=== PATIENT | female | born 1955 | race Caucasian/White ===

== ENCOUNTER → 2017-09-13 09:51 | Outpatient (CLI) | payer BC, SELFPAY ==
--- NOTE | 2017-09-13 09:54 | BI_ITS ---
MAMMOGRAPHY - BILATERAL SCREENING REASON FOR EXAM: Female, 62 years old. Routine annual screening examination. PERTINENT HISTORY: Aunt with breast cancer. TECHNIQUE: Digital bilateral breast yovana (3D mammographic acquisition) in the CC and MLO projections. 2-D mediolateral oblique (MLO) and craniocaudad (CC) views of both breasts were obtained. CAD: Full Field Digital Mammography with Computer Added Detection was performed. COMPARISON: Comparison is made with prior study dated July 21, 2016 and June 14, 2015. FINDINGS: Breast Composition: There are scattered areas of fibroglandular density. There are no dominant masses or suspicious calcifications. Stable benign-appearing bilateral axillary lymph nodes. No other significant abnormalities are identified. There has been no significant change since the prior study. BI/SCREENING MAMM (CAD), BILAT IMPRESSION: Stable bilateral screening mammogram. Yearly follow-up mammogram recommended. (A) ASSESSMENT CATEGORY: BIRADS Category 2: Benign. A letter regarding these results will be sent to the patient by the facility within 30 days. Approximately 10% of breast cancers are not detected by mammography. A normal mammogram should not delay biopsy of a clinically suspicious abnormality. [id number] Electronically Signed: Niko Du MD at 11:15 EDT Tel [phone], Service support ,
== END ==
PROVIDERS: Family Provider Nurse Practitioner Primary Care; PCP Nurse Practitioner Primary Care; Visit Provider Nurse Practitioner Primary Care
DX: Z12.31 Encounter for screening mammogram for malignant neoplasm of breast (principal)
CPT/HCPCS: 77063; 77067

== ENCOUNTER 2017-10-06 21:18 | Emergency (ER) | payer BC, SELFPAY ==
[2017-10-06 21:20] VITALS: BP 146/106; PULSE 89; RESP 15; TEMP 35.3; O2SAT 96; BMI 25.7
--- NOTE | 2017-10-06 22:02 | ED.VIS.GEN ---
History of Present Illness Chief Complaint: Eye Problem Informant: Patient Onset: Today, Hours - 2 Context: Sudden Onset Quality: pain, redness, FB sensation Location: right eye Current Severity: Moderate Maximum Severity: Moderate Narrative: Went to take out soft contacts for the night, and was unable to get her right one out. She feels like it is stuck. Her vision was normal before trying to take it out so she knows it was in her eye. She often suffers from dry eye which sometimes makes it difficult to get her contacts out. Past Medical History - Allergies and Home Meds Allergies/Adverse Reactions: Allergies MUSCLE RELAXER Allergy (Uncoded 10/06/17 21:23) Other Primary Care Physician: Coar Hogan NP-C [Primary Care Provider] - Past Medical History: None Smoking Status: Never smoker Review of Systems Eyes: Reports: - - Right eye pain, redness, foreign body sensation. Denies: Visual changes - bilaterally, Diplopia Physical Exam Vital Signs/Narrative: Vital Signs Temp Pulse Resp BP Pulse Ox 10/06/17 21:20 95.5 F L 89 15 146/106 H 96 Inital Vital Signs reviewed: Yes General: Well nourished, Well developed Head: Normocephalic, Atraumatic Eyes: Perrl, EOMI, - - OD conjunctive a injected diffusely. Upper eyelid everted without hidden foreign body, but the soft lens is found hiding very laterally beneath her lower eyelid. Neurological: Alert, Oriented x3, Cranial nerves II-XII grossly intact, Normal Strength, Normal Sensation Psychological: Normal affect Diagnostic/Tx/Re-eval - Medical Decision Making Patient is having a little discomfort, and foreign body sensation. Her eye was dyed with floor seen and underwent slit-lamp exam. Anterior chamber is deep and quiet, there is a very small possible abrasion in the 1:00 peripheral area, along with diffuse upper corneal punctate dye uptake. If she had been having symptoms prior to removing her contact I would think she could have some keratitis. My recommendation is to stay in her glasses for a couple days and to resume wearing her contacts if and when the redness and discomfort resolves on its own, otherwise following up with ophthalmology. Procedures Procedure(s): Foreign body removal right eye -- soft contact lens gently pinched using 2 cotton swabs and removed without difficulty. ED Disposition - Plan for ED Patient: Disposition: Home or Assisted Living Chief Complaint: Eye Problem Diagnosis: Foreign body of right eye, Corneal abrasion of right eye due to contact lens Instructions: ED Eye Injury Corneal Abrasion Referrals: Cora Hogan NP-C [Primary Care Provider] - 3-5 Days if not improving (Or your crm developer/property assessment monitor)
== END 2017-10-06 22:39 | disposition home or self-care (01) ==
PROVIDERS: Emergency Provider Emergency Medicine; Family Provider Nurse Practitioner Primary Care; PCP Nurse Practitioner Primary Care
DX: T15.91XA Foreign body on external eye, part unspecified, right eye, initial encounter (principal); H18.821 Corneal disorder due to contact lens, right eye
CPT/HCPCS: 99282

== ENCOUNTER 2017-10-17 19:20 | Emergency (ER) | payer BC, SELFPAY ==
[2017-10-17 19:20] VITALS: BP 156/124; PULSE 96; RESP 18; TEMP 37.2; O2SAT 98; BMI 25.4
--- NOTE | 2017-10-17 20:01 | ED.DCSUM_ITS ---
- ER Visit Summary Date of Service: 10/17/17 Chief Complaint: Contact stuck in right eye History of Present Illness: The patient is a 62 F who states her eyes have been dry lately. She has had more difficulty getting her right contact removed. She feels that her right contact is folded on the lateral portion of her eye and she cannot get it out. Physical Examination: Vital signs unremarkable. Eye examination reveals right eye to be injected. Pupils are equal and reactive. On initial examination I do not see obvious foreign body. Test Results: [] Emergency Department Course and Treatment: Saline was applied to the right eye. I am still unable to visualize her contact. Fluorescein was applied and this did highlight the contact and therefore I was able to visualize it and remove it. Eyes irrigated and contact is cleansed. Treatment Plan: [] Disposition: Discharge Impression: Foreign body right eye, removed This note was generated with [employer] dictation software. It may contain incorrect words, spelling, and punctuation that were not noted in review of the chart prior to signing ED Disposition - Plan for ED Patient: Disposition: Home or Assisted Living Chief Complaint: Eye Problem Instructions: ED Eye Particle Conjunctiva FB Rslv Referrals: Cora Hogan, SHEET ROCK APPLIER-C [Primary Care Provider] -
--- NOTE | 2017-10-17 20:01 | ED.DEP ---
ED Disposition - Plan for ED Patient: Disposition: Home or Assisted Living Chief Complaint: Eye Problem Instructions: ED Eye Particle Conjunctiva FB Rslv Referrals: Cora Hogan, BRAND MARKETING SPECIALIST-C [Primary Care Provider] -
[2017-10-17] MEDS: Tetracaine 0.5% Ophthalmic Bottle 1 DRP RIGHT EYE (20:03)
[2017-10-17] MEDS: Fluorescein 1 MG STRIP 1 STRIP RIGHT EYE (20:03)
[2017-10-17 20:08] VITALS: BP 155/86; PULSE 75; RESP 15; O2SAT 98
== END 2017-10-17 20:12 | disposition home or self-care (01) ==
PROVIDERS: Emergency Provider Emergency Medicine; Family Provider Nurse Practitioner Primary Care; PCP Nurse Practitioner Primary Care
DX: T15.91XA Foreign body on external eye, part unspecified, right eye, initial encounter (principal); M48.00 Spinal stenosis, site unspecified; F41.9 Anxiety disorder, unspecified; Z79.899 Other long term (current) drug therapy
CPT/HCPCS: 99282

== ENCOUNTER → 2018-09-28 | Outpatient (CLI) | payer BC, SELFPAY ==
--- NOTE | 2018-09-28 14:37 | BI_ITS ---
MAMMOGRAPHY - BILATERAL SCREENING 3-D TOMOSYNTHESIS REASON FOR EXAM: Female, 63 years old. Bilateral Screening 3-D tomosynthesis PERTINENT HISTORY: Aunt with breast cancer.. TECHNIQUE: 2-D mammograms and 3-D Tomosynthesis of the breast (s) were performed. CAD was performed. COMPARISON: 09/13/2017 FINDINGS: The breast composition is composed of scattered fibroglandular density. Scattered benign calcifications are seen. No dense spiculated masses or suspicious microcalcifications are identified. No architectural distortion is identified. There is no skin thickening or retraction. There has been no significant change since the prior study. BI/SCREEN MAMM (CAD) W/GLORIA BILAT IMPRESSION: No mammographic signs of malignancy. Routine yearly mammograms recommended. ASSESSMENT CATEGORY: BIRADS Category 1: Negative. A letter regarding these results will be sent to the patient by the facility within 30 days. FOLLOW UP RECOMMENDATION: Yearly follow up mammogram recommended. (A) Approximately 10% of breast cancers are not detected by mammography. A normal mammogram should not delay biopsy of a clinically suspicious abnormality. Electronically Signed: Faisal Anderson MD at 15:31 EDT , Service support ,
== END | disposition home or self-care (01) ==
LOC: OPBI 14:35
PROVIDERS: Family Provider Nurse Practitioner Primary Care; PCP Nurse Practitioner Primary Care; Referring Provider Nurse Practitioner Primary Care; Visit Provider Nurse Practitioner Primary Care
DX: Z12.31 Encounter for screening mammogram for malignant neoplasm of breast (principal)
CPT/HCPCS: 77063; 77067

== ENCOUNTER → 2019-08-17 12:37 | Outpatient (CLI) | payer BC, SELFPAY ==
--- NOTE | 2019-08-17 12:42 | CT_ITS ---
STUDY: CT SCAN LOWER EXTREMITY LEFT REASON FOR EXAM: Female, 63 years old. MIKE LEFT KNEE RADIATION DOSAGE (If Supplied By Facility): CTDIvol = ( 20.10 ) mGy, DLP = ( 1195.64 ) mGycm. Individualized dose optimization techniques were used for this CT.? TECHNIQUE: Multiple axial tomographic images of the left hip joint, knee joint and ankle joint were obtained. Coronal and sagittal reconstruction was obtained as well. COMPARISON: None. FINDINGS: The left hip joint is unremarkable. No significant abnormality is seen. Incidental note is made of a calcified fibroid. Marked degree of joint space narrowing in the medial compartment of knee joint with subchondral cysts in the distal femur and proximal medial tibial plateau with degenerative spur formation. Large joint effusion. Degenerative spurring is also seen along the anterior medial aspect of the distal medial femoral condyle as well as the posterior femoral condyle. The ankle joint is unremarkable. CT/Extremity Lower without Contra IMPRESSION: Severe joint space narrowing and osteoarthritis of the medial compartment of the joint with degenerative spur formation. Large effusion. Electronically Signed: Niko Du, at 13:36 EDT , Service support ,
--- NOTE | 2019-08-17 13:48 | EKG12_ITS ---
Test Reason : PRE OP Blood Pressure : / mmHG Vent. Rate : 077 BPM Atrial Rate : 077 BPM P-R Int : 164 ms QRS Dur : 078 ms QT Int : 394 ms P-R-T Axes : 048 022 013 degrees QTc Int : 445 ms Normal sinus rhythm Normal ECG Confirmed by MIGUEL ÁNGEL IVEY, MADIHA ([id number]), website/blog editor SERGEY DELACRUZ ([id number]) on 08/22/2019 11:32:38 AM Referred By: Allen Porras Confirmed By:LALO DEL ROSARIO MD
[2019-08-17 14:47] LABS: Absolute Lymphocyte Count 1.55 X10^3/uL (0.83-4.51); Absolute Neutrophil Count 3.8 X10^3/uL (2.0-7.7); Basophil# 0.05 X10^3/uL; Basophil% 0.8 % (0-1); Eosinophil# 0.39 X10^3/uL; Eosinophils% 6.2 % (0-5); Hemoglobin 12.9 g/dL (12.0-15.0); Lymphocyte # 1.55 X10^3/ul (4.0); Lymphocyte % 24.7 % (19-41); Mean Corp Hgb Conc 32.3 g/dL (32-36); Mean Corpuscular Hgb 29.5 pg (27.0-32.0); Mean Corpuscular Volume 91.3 fL (81-99); Mean Platelet Vol. 10.6 fl (6.2-12.0); NRBC Flagged by Analyzer 0 % (0-5); Neutrophil # 3.77 X10^3/uL (2.7-7.7); Platelet Count 276 K/mm3 (150-450); RBC Distribution Width CV 12.4 % (11.6-14.6); RBC Distribution Width SD 41.2 fl (35.1-43.9); Red Blood Count 4.38 M/mm3 (4.2-5.4); White Blood Count 6.3 K/mm3 (4.4-11.0)
[2019-08-17 15:07] LABS: Anion Gap 9 (5-15); BUN 22 mg/dL (7-18); BUN/Creat Ratio 20.8 RATIO (10-20); Calcium,Total 8.8 mg/dL (8.5-10.1); Chloride 106 mmol/L (98-107); Creatinine, Serum 1.06 mg/dL (0.55-1.02); EST Glomerular Filtration Rate 55 mL/min (>60); Est Glom Filt Rate - Afr Amer 67 mL/min (>60); Glucose 96 mg/dL (74-106); Potassium 3.8 mmol/L (3.5-5.1); Sodium Level 141 mmol/L (136-145)
== END ==
PROVIDERS: PCP Nurse Practitioner Primary Care; Referring Provider Orthopaedic Surgery; Visit Provider Orthopaedic Surgery
DX: Z01.810 Encounter for preprocedural cardiovascular examination (principal); M21.162 Varus deformity, not elsewhere classified, left knee
CPT/HCPCS: 36415; 73700; 80048; 85025; 93005

== ENCOUNTER 2019-09-04 10:04 | Observation (INO) | payer BC, SELFPAY ==
[2019-09-04] VITALS (14 sets, daily range): BP systolic 110–173; BP diastolic 52–89; PULSE 66–103; RESP 16–18; TEMP 36.2–37.3; O2SAT 95–100; BMI 26.3
[2019-09-04 09:00] LABS: Bedside Glucose 98 mg/dL (70-110)
[2019-09-04] MEDS: Lactated Ringers 1,000 ML 100 ML IV ×2 (09:08→12:41)
[2019-09-04] MEDS: Acetaminophen 500 MG Tablet 1000 MG PO ×3 (09:11→22:08)
[2019-09-04] MEDS: Gabapentin 600 MG Tablet PO (09:11)
[2019-09-04] MEDS: Cefazolin 2 GM in 0.9% Normal Saline 100 ML IV (09:46)
--- NOTE | 2019-09-04 10:00 | KNEE_PTH ---
PATIENT: MNADA ARBOLEDA LOC: MS3 U#:[id number] AGE/SX: 63/F ROOM: MS312 RE09/04/[address]: Dr. Allen Porras DO : 1955 BED: 1 DIS: 09/05/2019 SPEC #: [id number] RECD: 09/04/19 15:17 STATUS: ENMA RETootie #: [id number] CHERRY: 09/04/19 10:[address]: Allen Porras DEPT: SURGICAL PATHOLOGY RECD BY: Marquez Blue ENTERED: 09/05/19 09:44 SP TYPE: TOTAL KNEE OTHR DR: Cora Hogan, INSURANCE SALES AGENT-Gregory Tissues: Knee, NOS Procedures: Decalcification bone/plaque Surgery Specimen Level IV HEADER OPERATION: ERAS, total knee arthroplasty PRE-OP DIAGNOSIS: Left knee osteoarthritis TISSUE SUBMITTED: Left knee bone and soft tissue MICROSCOPIC DIAGNOSIS Bone and soft tissue, left knee, total knee replacement: Pieces of bone with degenerative osteoarthritic changes. Fibroconnective tissue and reactive synovial tissue. ESDRAS:diane 09/11/19 MICROSCOPIC DESCRIPTION Slides are reviewed. GROSS DESCRIPTION Received is one container designated bone and soft tissue left knee. The specimen consists of multiple fragments of jules-yellow bone measuring in aggregate 14 x 10 x 1.5 cm. Also in the specimen container are multiple fragments of yellow-white soft tissue measuring in aggregate 2 x 2 x 0.5 cm. A number of bony fragments contain articular surfaces consistent with tibial plateau and femoral condyle and displaying prominent osteophyte formation, eburnation, and bone erosion. Manager Public sections are submitted in two cassettes as follows: 1 - soft tissue, 2 - bone after decalcification. / AM:diane 09/05/19 TC:5 [facility]: [id number], [id number]
--- NOTE | 2019-09-04 12:18 | RAD_ITS ---
STUDY: X-RAY - LEFT KNEE REASON FOR EXAM: Female, 63 years old. Post op left knee TECHNIQUE: AP and lateral view(s) of the knee. COMPARISON: Comparison is made with prior examination October 19, 2016. FINDINGS: Normal visualized distal femur. Normal visualized proximal tibia and fibula. Normal proximal tibiofibular articulation. The patient is status post left knee replacement. There is good alignment. Postoperative soft tissue changes. RAD/Knee 1 or 2 Views IMPRESSION: Status post total knee replacement. There is good alignment. Postoperative soft tissue changes. Electronically Signed: Niko Du, at 12:35 EDT , Service support ,
[2019-09-04] MEDS: Lactated Ringers 1,000 ML 999 ML IV (12:31)
[2019-09-04 12:58] LABS: Hematocrit 37.3 % (37-47); Hemoglobin 11.9 g/dL (12.0-15.0); Mean Corp Hgb Conc 31.9 g/dL (32-36); Mean Corpuscular Hgb 29.6 pg (27.0-32.0); Mean Corpuscular Volume 92.8 fL (81-99); Platelet Count 246 K/mm3 (150-450); RBC Distribution Width CV 12.3 % (11.6-14.6); RBC Distribution Width SD 41.6 fl (35.1-43.9); Red Blood Count 4.02 M/mm3 (4.2-5.4); White Blood Count 5.2 K/mm3 (4.4-11.0)
--- NOTE | 2019-09-04 13:12 | PCM.OPRPT ---
Report of Operation Date of Procedure: 09/04/19 Pre-Operative Diagnosis: OA left knee Post-Operative Diagnosis: same Surgery/Procedure Performed:: Left TKR flatlock sewing machine operator: Familia Saravia Type of Anesthesia:: Spinal Anesthesiologist: Pal Crum - Admit VTE Documentation VTE Present on Admission: No VTE Mechan Device Prophylaxis: SCD's, Thigh High THA Hose VTE Pharm Prophylaxis ordered?: Yes
[2019-09-04 13:15] LABS: Anion Gap 5 (5-15); BUN 15 mg/dL (7-18); BUN/Creat Ratio 17.6 RATIO (10-20); Calcium,Total 8.7 mg/dL (8.5-10.1); Chloride 111 mmol/L (98-107); Creatinine, Serum 0.85 mg/dL (0.55-1.02); EST Glomerular Filtration Rate 71 mL/min (>60); Est Glom Filt Rate - Afr Amer 86 mL/min (>60); Glucose 132 mg/dL (74-106); Potassium 3.7 mmol/L (3.5-5.1); Sodium Level 143 mmol/L (136-145)
[2019-09-04] MEDS: oxyCODONE 5 MG Tablet PO (14:49)
[2019-09-04] MEDS: Lactated Ringers 1,000 ML 125 ML IV (14:50)
[2019-09-04] MEDS: Cefazolin 1 GM/50 ML BAG IV (18:23)
[2019-09-04] MEDS: 0.9% Saline Lock 10 ML Syringe IV (21:04)
[2019-09-04] MEDS: Aspirin 81 MG TAB.CHEW PO (22:08)
[2019-09-04] MEDS: Gabapentin 100 MG Capsule PO (22:08)
[2019-09-05] MEDS: Cefazolin 1 GM/50 ML BAG IV (01:51)
[2019-09-05] MEDS: 0.9% Saline Lock 10 ML Syringe IV (01:51)
[2019-09-05 02:04] VITALS: BP 134/59; PULSE 74; RESP 16; TEMP 36.6; O2SAT 97
[2019-09-05 02:06] VITALS: BMI 26.3
[2019-09-05] MEDS: Acetaminophen 500 MG Tablet 1000 MG PO ×2 (05:41→14:07)
[2019-09-05] MEDS: oxyCODONE 5 MG Tablet PO ×2 (05:41→14:07)
[2019-09-05 05:48] VITALS: BP 133/63; PULSE 78; RESP 18; TEMP 36.7; O2SAT 97
[2019-09-05 05:50] VITALS: BMI 26.3
[2019-09-05 07:10] LABS: Hematocrit 37.8 % (37-47); Hemoglobin 12.1 g/dL (12.0-15.0); Mean Corpuscular Volume 93.8 fL (81-99); Mean Platelet Vol. 10.8 fl (6.2-12.0); Platelet Count 230 K/mm3 (150-450); RBC Distribution Width CV 12.2 % (11.6-14.6); Red Blood Count 4.03 M/mm3 (4.2-5.4); White Blood Count 5.5 K/mm3 (4.4-11.0)
[2019-09-05 07:30] LABS: Anion Gap 7 (5-15); BUN 15 mg/dL (7-18); BUN/Creat Ratio 18.3 RATIO (10-20); Calcium,Total 8.4 mg/dL (8.5-10.1); Chloride 112 mmol/L (98-107); Creatinine, Serum 0.82 mg/dL (0.55-1.02); EST Glomerular Filtration Rate 74 mL/min (>60); Est Glom Filt Rate - Afr Amer 90 mL/min (>60); Estimated Creatinine Clearance 64.89 ml/min; Glucose 127 mg/dL (74-106); Potassium 4.4 mmol/L (3.5-5.1); Sodium Level 143 mmol/L (136-145)
--- NOTE | 2019-09-05 07:43 | PCM.PN.ORT ---
Subjective: Pt sitting at bedside eating breakfast. pain well terry. no complaints, ready for discharge home. Objective: dressing c/d/i, neg sx/sx. vss wnl, a-feb, nv intact - Physical Exam Vitals/I&O's: Vital Signs Temp Pulse Resp BP Pulse Ox 98.1 F 78 18 133/63 H 97 09/05/19 05:48 09/05/19 05:48 09/05/19 05:48 09/05/19 05:48 09/05/19 05:48 Oxygen Flow Rate (L/min) 6 Oxygen Delivery Method Room Air Weight: 60.1 kg Body Mass Index (BMI) 26.3 Intake and Output for Last 24 Hours 09/03/19 09/04/19 09/05/19 23:59 23:59 23:59 Intake Total 4717.50 / 4717.50 450 / 450 Output Total 2550 / 2550 650 / 650 Balance 2167.50 / 2167.50 -200 / -200 General: Alert, Oriented x3, Cooperative HEENT: PERRLA Oral: Moist Mucosa Neurological: Cranial nerves II-XII grossly intact Psych/Mental Status: Normal Affect, Alert and oriented to time, place, person, mood and affect Laboratory Results 09/04/19 08:55: POC Glucose 98 09/04/19 12:40: WBC 5.2, RBC 4.02 L, Hgb 11.9 L, Hct 37.3, MCV 92.8, MCH 29.6, MCHC 31.9 L, RDW Std Deviation 41.6, RDW Coeff of Tc 12.3, Plt Count 246, MPV 10.0 09/04/19 12:40: Sodium 143, Potassium 3.7, Chloride 111 H, Carbon Dioxide 27.0, Anion Gap 5, BUN 15, Creatinine 0.85, Estim Creat Clear Calc 62.60, Est GFR (MDRD) Af Amer 86, Est GFR (MDRD) Non-Af 71, BUN/Creatinine Ratio 17.6, Glucose 132 H, Calcium 8.7 09/05/19 05:26: WBC 5.5, RBC 4.03 L, Hgb 12.1, Hct 37.8, MCV 93.8, MCH 30.0, MCHC 32.0, RDW Std Deviation 42.0, RDW Coeff of Tc 12.2, Plt Count 230, MPV 10.8 09/05/19 05:26: Sodium 143, Potassium 4.4, Chloride 112 H, Carbon Dioxide 24.0, Anion Gap 7, BUN 15, Creatinine 0.82, Estim Creat Clear Calc 64.89, Est GFR (MDRD) Af Amer 90, Est GFR (MDRD) Non-Af 74, BUN/Creatinine Ratio 18.3, Glucose 127 H, Calcium 8.4 L Current Medications Acetaminophen (Tylenol) 1,000 mg PO Q8 [facility] Last Admin: 09/05/19 05:41 Dose: 1,000 mg Documented by: Aspirin (Aspirin, Baby) 81 mg PO BID [facility] Last Admin: 09/04/19 22:08 Dose: 81 mg Documented by: Calcium/Vitamin D (Os-Minh 500mg + D) 1 tablet PO DAILY@0800 [facility] Cholecalciferol (Vitamin D (25mcg)) 5,000 unit PO DAILY [facility] Gabapentin (Neurontin) 100 mg PO BID [facility] Last Admin: 09/04/19 22:08 Dose: 100 mg Documented by: Sodium Chloride () 250 mls @ 15 mls/hr IV .[id number] PRN PRN Reason: Saline Flush Sodium Chloride () 250 mls @ 15 mls/hr IV .[id number] PRN PRN Reason: Additional IVPB Infusion Insulin Human Lispro (Humalog Kwikpen ([facility])) 1 - 6 unit SC Q4H PRN PRN; Protocol PRN Reason: BG>/= 180, SEE PROTOCOL Magnesium Oxide (Mag-Ox 400) 400 mg PO DAILY [facility] Multivitamins/Minerals (Multivitamin With Minerals (Bk)) 1 tablet PO DAILY@0800 [facility] Ondansetron HCl (Zofran) 4 mg IV Q8H PRN PRN PRN Reason: NAUSEA Oxycodone HCl (Oxyir) 5 - 10 mg PO Q4H PRN PRN PRN Reason: Pain Score 4-10/10 Last Admin: 09/05/19 05:41 Dose: 10 mg Documented by: Promethazine HCl (Phenergan) 12.5 mg IM Q6H PRN PRN; Protocol PRN Reason: NAUSEA/VOMITING Senna/Docusate Sodium (Senokot-S, Vy-Colace) 2 tablet PO BID [facility] Last Admin: 09/04/19 22:09 Dose: Not Given Documented by: Sodium Chloride () 10 - 40 ml IV UD PRN PRN Reason: SALINE FLUSH Last Admin: 09/05/19 01:51 Dose: 10 ml Documented by: Medical Necessity - Tobacco Use Smoking Status: Never smoker Tobacco Use: Non-smoker Assessment/Plan s/p left tkr Plan: 1. Cont all pain meds as rx 2. Cont therapy 3. ASA 81mg 1po q12 hr x30 days for post DVT 4. Encourage incentive spherometry 5. DC home today 6. F/U as scheduled
--- NOTE | 2019-09-05 08:05 | PCM.DC.TKR ---
Discharge Diet: No Restrictions Discharge Activity: May Not Drive, May Shower, Use Walker May shower in (days): 3 Ice area for (Minutes): 20 - each hour while awake. Weight Bearing Status: Weight bearing as tolerated Elevate: Operative Extremity Additional Activity Instructions:: Wear elastic stockings for 2 weeks after your surgery. Call your doctor if your incision/area has: Continuous Slow Oozing, Sudden Increased Bleeding, Increased Pain/ Swelling, Increased Redness, Foul Smelling Discharge Call your doctor if you observe: Fever of 101 or Higher, Coldness, Increased Pain - in extremity, Numbness or Tingling, Change in Color, Calf discomfort, Uncontrolled pain Change Dressing in (Days):: 0 - and daily as needed. Remove Dressing in (days):: 8 Cleanse incision/area with: Soap & Water Allergies/Adverse Reactions: Allergies chlorhexidine Adverse Reaction (Verified 09/04/19 08:52) NEEDS FOLLOW-UP skin became tingling MUSCLE RELAXER Allergy (Uncoded 08/28/19 08:40) Other Medications to take at Discharge Gabapentin [Neurontin] 100 mg PO BID 10/06/17 Biotin 10,000 mcg PO DAILY 08/28/19 Calcium Carbonate/Vitamin D3 [Calcium 600 + Vit D Tablet] 1 ea PO DAILY 08/28/19 Cholecalciferol (Vitamin D3) [Vitamin D3] 5,000 unit PO DAILY 08/28/19 Magnesium Oxide [Magnesium] 500 mg PO DAILY 08/28/19 Meloxicam [Mobic] 15 mg PO DAILY 08/28/19 Multivit-Min/Iron/Folic/Lutein [Centrum Silver Women Tablet] 1 ea PO DAILY 08/28/19 traMADol [Ultram (G)] 50 mg PO QHS 08/28/19 Primary Care Physician: Cora Hogan NP-C [Primary Care Provider] - Test Results: Test results from this visit will be discussed in further detail at your follow-up appointment, if applicable. Please Follow Up With: Familia Saravia PA-C When: as scheduled
[2019-09-05] MEDS: Multivitamins,Ther W-Minerals Tablet 1 TABLET PO (08:19)
[2019-09-05] MEDS: Aspirin 81 MG TAB.CHEW PO (08:20)
[2019-09-05] MEDS: Calcium Carb/Vitamin D 1 TABLET Tablet PO (08:20)
[2019-09-05] MEDS: Magnesium Oxide 400 MG Tablet PO (08:20)
[2019-09-05] MEDS: Gabapentin 100 MG Capsule PO (08:21)
[2019-09-05] MEDS: Senna/Docusate Sodium 1 Tablet 2 TABLET PO (08:21)
[2019-09-05 09:45] VITALS: BP 109/52; PULSE 70; RESP 18; TEMP 36.6; O2SAT 97
[2019-09-05 10:11] VITALS: BMI 26.3
--- NOTE | 2019-09-05 11:10 | CASEMGMT ---
RN JUAN Face to Face with patient for initial transition planning/care coordination assessment. RN CM introduced self and role at [facility]. Patient sitting in chair, alert and oriented. Patient willing to participate in assessment and is able to answer all questions appropriately. Care providers, pharmacy, and demographics verified. Patient wishes to discharge home, and is setup with [facility] for outpatient therapy. Patient states she has no further needs or concerns at this time. CM to follow for discharge planning needs that may arise. PCP: Cora Hogan Specialists: choco Porras Pharmacy: [facility] retail at discharge Insurance: [facility] Prescription Benefit: yes Living Will/HPOA: none LNOK: daugther, boyfriend Living Arrangements: Patient lives alone in 1 story home with 4 steps and railings to enter the home. Patient states daugther or boyfriend will be staying with her. Transportation: daughter or boyfriend DME/HHC: Patient state she has walker, cane, shower chair, and hand held shower. Patient is scheduled for outpatient therapy for at [facility]. Disposition Plan: Patient to discharge home with family support and follow-up plans in place. Saadia JORGE, RN, CM
[2019-09-05 14:11] VITALS: BMI 26.3
--- NOTE | 2019-09-05 14:19 | PHA.DC.MR ---
Pharmacy Service has performed discharge medication reconciliation for this patient. The patient's discharge medication list was reviewed for discrepancies and discrepancies were resolved. Home Medications Gabapentin [Neurontin] 100 mg PO BID 10/06/17 Biotin 10,000 mcg PO DAILY 08/28/19 Calcium Carbonate/Vitamin D3 [Calcium 600 + Vit D Tablet] 1 ea PO DAILY 08/28/19 Cholecalciferol (Vitamin D3) [Vitamin D3] 5,000 unit PO DAILY 08/28/19 Magnesium Oxide [Magnesium] 500 mg PO DAILY 08/28/19 Meloxicam [Mobic] 15 mg PO DAILY 08/28/19 Multivit-Min/Iron/Folic/Lutein [Centrum Silver Women Tablet] 1 ea PO DAILY 08/28/19 traMADol [Ultram (G)] 50 mg PO QHS 08/28/19
== END 2019-09-05 14:41 | disposition home or self-care (01) ==
LOC: SDC 11:43 → MS3 11:43
PROVIDERS: Anesthesiology; Admitting Provider Orthopaedic Surgery; PCP Nurse Practitioner Primary Care; Referring Provider Orthopaedic Surgery; Visit Provider Orthopaedic Surgery
PROC: 0SRD0JZ Replacement of Left Knee Joint with Synthetic Substitute, Open Approach (ICD-10-PCS; CPT 27447; principal; 2019-09-04 09:30)
DX: M17.12 Unilateral primary osteoarthritis, left knee (principal); R03.0 Elevated blood-pressure reading, without diagnosis of hypertension; Z79.899 Other long term (current) drug therapy; M48.00 Spinal stenosis, site unspecified
CPT/HCPCS: 01400; 27447; 64447; S2900; 36415; 73560; 80048; 82962; 85027; 87081; 87635; 88305; 88311; 96361; 96365; 96366; 97110; 97116; 97161; 97166; 97530; 97535; 99218; 99251; C1776; G2023; J7120; A4216; G0378; G0379; G0463; U0003

== ENCOUNTER → 2020-06-04 14:48 | Outpatient (CLI) | payer MEDICARE, OTHER, SELFPAY ==
[2019-09-04 14:11] VITALS: BMI 26.3
--- NOTE | 2020-06-04 14:52 | BI_ITS ---
MAMMOGRAPHY - BILATERAL SCREENING REASON FOR EXAM: Female, 64 years old. Routine annual screening examination. PERTINENT HISTORY: Aunt with breast cancer. TECHNIQUE: Digital bilateral breast gloria (3D mammographic acquisition) in the CC and MLO projections. 2-D mediolateral oblique (MLO) and craniocaudad (CC) views of both breasts were obtained. CAD: Full Field Digital Mammography with Computer Added Detection was performed. COMPARISON: Comparison is made with prior examination dated 09/28/2018 and 09/14/2007. FINDINGS: Breast Composition: There are scattered areas of fibroglandular density. There are no dominant masses or suspicious calcifications. Stable skin lesion in the deep inferior medial aspect of the right breast. Stable dense calcified nodule in the retroareolar region of the right breast. No other significant abnormalities are identified. There has been no significant change since the prior study. BI/SCRN MAMM (CAD)W/GLORIA BILAT IMPRESSION: Stable bilateral screening mammogram. Yearly follow-up mammogram recommended. (A) ASSESSMENT CATEGORY: BIRADS Category 2: Benign. A letter regarding these results will be sent to the patient by the facility within 30 days. Approximately 10% of breast cancers are not detected by mammography. A normal mammogram should not delay biopsy of a clinically suspicious abnormality. [id number] Electronically Signed: Niko Du MD at 15:45 EDT , Service support ,
--- NOTE | 2020-06-04 14:56 | BD_ITS ---
STUDY: DUAL ENERGY X-RAY ABSORPTIOMETRY / DXA REASON FOR EXAM: Female, 64 years old. M810 TECHNIQUE: Bone Mineral Density (BMD) measurements of lumbar spine and bilateral hips were obtained. COMPARISON: None. FINDINGS: Lumbar Spine (L1-L4): g/cm2 (1.338) / T-score (1.1) / Z-score (2.8) Findings are suggestive of normal bone density with a low fracture risk. Left Femur Total: g/cm2 (0.727) / T-score (-2.2) / Z-score (-1.0) Left Femoral Neck: g/cm2 (0.755) / T-score (-2.0) / Z-score (-0.5) Right Femur Total: g/cm2 (0.774) / T-score (-1.9) / Z-score (-0.6) Right Femoral Neck: g/cm2 (0.702) / T-score (-2.4) / Z-score (-0.9) BD/Dexa Bone Density Study IMPRESSION: The patient is considered osteopenic as outlined below according to World Serg Organization (WHO) criteria with a high fracture risk. Reference Information: The T-score is the number of standard deviations above or below the standard which is normal for young adults at their peak bone mineral density. The World Health Organization (WHO) interprets the T-scores as follows: Above -1 Normal bone density Between -1 and -2.5 Osteopenia Equal to / or below -2.5 Osteoporosis As a practical clinical guideline, osteopenia may be graded as follows: Mild -1 through -1.5 Moderate -1.6 through -2.0 Severe -2.1 through -2.4 The Z-score is the number of standard deviations above or below age-matched controls. A Z-score of less than -1.5 would be considered abnormal. References: 1. NIH Osteoporosis and Related Bone Diseases www osteo.org 2. International Society for Clinical Densitometry www iscd.org 3. National Osteoporosis Foundation www nof.org Electronically Signed: Niko Du MD at 12:52 EDT , Service support ,
== END ==
PROVIDERS: PCP Nurse Practitioner Primary Care; Referring Provider Nurse Practitioner Primary Care; Visit Provider Nurse Practitioner Primary Care
DX: Z12.31 Encounter for screening mammogram for malignant neoplasm of breast (principal); Z13.820 Encounter for screening for osteoporosis; M81.0 Age-related osteoporosis without current pathological fracture
CPT/HCPCS: 77063; 77067; 77080

== ENCOUNTER 2021-06-12 09:46 | Outpatient (CLI) | payer MEDICARE, OTHER, SELFPAY ==
--- NOTE | 2021-06-12 09:49 | BI_ITS ---
MAMMOGRAPHY - BILATERAL SCREENING REASON FOR EXAM: Female, 65 years old. Routine annual screening examination. PERTINENT HISTORY: Aunts with breast cancer. TECHNIQUE: Digital bilateral breast gloria (3D mammographic acquisition) in the CC and MLO projections. 2-D mediolateral oblique (MLO) and craniocaudad (CC) views of both breasts were obtained. CAD: Full Field Digital Mammography with Computer Added Detection was performed. COMPARISON: Comparison is made with prior examination dated 06/04/2020 and 09/28/2014. FINDINGS: Breast Composition: There are scattered areas of fibroglandular density. There are no dominant masses or suspicious calcifications. No other significant abnormalities are identified. There has been no significant change since the prior study. BI/SCRN MAMM (CAD)W/GLORIA BILAT IMPRESSION: Stable bilateral screening mammogram. Yearly follow-up mammogram recommended. (A) ASSESSMENT CATEGORY: BIRADS Category 1: Negative. A letter regarding these results will be sent to the patient by the facility within 30 days. Approximately 10% of breast cancers are not detected by mammography. A normal mammogram should not delay biopsy of a clinically suspicious abnormality. [id number] Electronically Signed: Niko Du MD at 11:00 EDT ,
== END 2021-06-12 23:59 | disposition home or self-care (01) ==
LOC: OPBI 09:46
PROVIDERS: PCP Nurse Practitioner Primary Care; Visit Provider Nurse Practitioner Primary Care
DX: Z12.31 Encounter for screening mammogram for malignant neoplasm of breast (principal)
CPT/HCPCS: 77063; 77067

== ENCOUNTER → 2022-08-11 | Outpatient (CLI) | payer MEDICARE, SELFPAY ==
--- NOTE | 2022-08-11 14:32 | BI_ITS ---
MAMMOGRAPHY - BILATERAL SCREENING REASON FOR EXAM: Female, 66 years old. Routine annual screening examination. PERTINENT HISTORY: Aunts with breast cancer. TECHNIQUE: Digital bilateral breast gloria (3D mammographic acquisition) in the CC and MLO projections. 2-D mediolateral oblique (MLO) and craniocaudad (CC) views of both breasts were obtained. CAD: Full Field Digital Mammography with Computer Added Detection was performed. COMPARISON: Comparison is made with prior study dated June 12, 2021 and June 04, 2020. FINDINGS: Breast Composition: There are scattered areas of fibroglandular density. There are no dominant masses or suspicious calcifications. Stable calcified granuloma in the retroareolar region of the right breast. Stable small benign-appearing bilateral axillary lymph nodes. No other significant abnormalities are identified. There has been no significant change since the prior study. BI/SCRN MAMM (CAD)W/GLORIA BILAT IMPRESSION: Stable bilateral screening mammogram. Yearly follow-up mammogram recommended. (A) ASSESSMENT CATEGORY: BIRADS Category 2: Benign. A letter regarding these results will be sent to the patient by the facility within 30 days. Approximately 10% of breast cancers are not detected by mammography. A normal mammogram should not delay biopsy of a clinically suspicious abnormality. [id number] Electronically Signed: Niko Du MD at 15:28 EDT ,
--- NOTE | 2022-08-11 14:38 | BD_ITS ---
STUDY: DUAL ENERGY X-RAY ABSORPTIOMETRY / DXA REASON FOR EXAM: Female, 66 years old. M810 TECHNIQUE: Bone Mineral Density (BMD) measurements of lumbar spine and bilateral hips were obtained. COMPARISON: Comparison is made with prior study dated June 04, 2020. FINDINGS: Lumbar Spine (L1-L4): g/cm2 (1.045) / T-score (0.6) / Z-score (2.5) Findings are suggestive of normal bone density with a low fracture risk. Left Femur Total: g/cm2 (0.626) / T-score (-2.6) / Z-score (-1.2) Left Femoral Neck: g/cm2 (0.582) / T-score (-2.4) / Z-score (-0.7) Right Femur Total: g/cm2 (0.637) / T-score (-2.5) / Z-score (-1.1) Right Femoral Neck: g/cm2 (0.559) / T-score (-2.6) / Z-score (-0.9) The T-Scores on the most recent prior examination were: Lumbar Spine (L1-L4): There has been worsening of bone density since the previous examination. Left Femur Total: which represents a worsening of 6.4%. Right Femur Total: which represents a worsening of 10.9%. BD/Dexa Bone Density Study IMPRESSION: The patient is considered osteoporotic as outlined below according to World Serg Organization (WHO) criteria with a high fracture risk. There has been worsening of bone density since the previous examination. Reference Information: The T-score is the number of standard deviations above or below the standard which is normal for young adults at their peak bone mineral density. The World Health Organization (WHO) interprets the T-scores as follows: Above -1 Normal bone density Between -1 and -2.5 Osteopenia Equal to / or below -2.5 Osteoporosis As a practical clinical guideline, osteopenia may be graded as follows: Mild -1 through -1.5 Moderate -1.6 through -2.0 Severe -2.1 through -2.4 The Z-score is the number of standard deviations above or below age-matched controls. A Z-score of less than -1.5 would be considered abnormal. References: 1. NIH Osteoporosis and Related Bone Diseases www osteo.org 2. International Society for Clinical Densitometry www iscd.org 3. National Osteoporosis Foundation www nof.org Electronically Signed: Niko Du MD at 14:33 EDT ,
== END | disposition home or self-care (01) ==
LOC: OPBI 14:29
PROVIDERS: PCP Nurse Practitioner Primary Care; Referring Provider Nurse Practitioner Primary Care; Visit Provider Nurse Practitioner Primary Care
DX: Z12.31 Encounter for screening mammogram for malignant neoplasm of breast (principal); Z80.3 Family history of malignant neoplasm of breast; M81.0 Age-related osteoporosis without current pathological fracture
CPT/HCPCS: 77063; 77067; 77080

== ENCOUNTER → 2023-04-21 | Outpatient (CLI) | payer MEDICARE, SELFPAY ==
--- NOTE | 2023-04-20 | LES_PTH ---
PATHOLOGY RESULTS PATIENT: MANDA ARBOLEDA LOC: [facility] U#:[id number] AGE/SX: 67/F ROOM: RE04/21/[address]: Dr. John James MD : 1955 BED: DIS: 04/21/2023 SPEC #: [id number] RECD: 04/21/23 10:20 STATUS: ENMA PARVIN #: [id number] CHERRY: 04/20/23 00:[address]: John James DEPT: SURGICAL PATHOLOGY RECD BY: Amirah Chang ENTERED: 04/21/23 10:21 SP TYPE: Lesion OTHR DR: Cora Hogan, HEALTH AND SAFETY SPECIALIST-C Tissues: Skin of eyelid, NOS Procedures: Surgery Specimen Level IV HEADER OPERATION: Left lower lid lesion excision PRE-OP DIAGNOSIS: Increased side of lesion TISSUE SUBMITTED: Left lower lid lesion MICROSCOPIC DIAGNOSIS Left lower lid lesion, biopsy: Seborrheic keratosis with acute inflammation in the superficial keratin layers. Negative for malignancy. ESDRAS:diane 04/22/2023 MICROSCOPIC DESCRIPTION Slides are reviewed. GROSS DESCRIPTION Received in fixative is one container labeled with the patient's name and designated left lower lid lesion. The specimen consists of a piece of jules-white skin measuring 0.4 x 0.3 x 0.2 cm. The specimen is inked and submitted entirely in one cassette. / ESDRAS:diane 04/21/2023 TC:1 CPT: 89699
--- OUTSIDE RECORDS SUMMARY | 2023-04-21 10:35 | XMS RPT_ITS | CCD ---
Author Name Unknown Address [address] [place] [address] Organization [facility] Care Team Providers Care Photonic Laboratory Technician Name Role Phone Milvia Han Unavailable Fast, Staci A Unavailable Susan Hall Unavailable Unavailable Nati New Unavailable Unavailable Janay Perry Unavailable Unavailable Latia Alas Unavailable Unavailable Unavailable Milvia Han Attending Unavailable Fast, Staci A Referring Unavailable Milvia Han Consulting Unavailable Gravius, Svetlana Unavailable Unavailable Vega Hearne, La Unavailable Slarb, Justa Unavailable Unavailable Ciesa, Terri Unavailable Gravius, Svetlana Unavailable Unavailable Milvia Han DO Unavailable Fast DO, Staci A Unavailable Sulma GROUNDS WORKER, Araceli Unavailable Unavailable Gravius CLERICAL ADJUSTER, Svetlana Unavailable Unavailable Slarb GROUNDS WORKER, Justa Unavailable Unavailable Susan Hall Unavailable Unavailable Ciesa INGREDIENT SCALER HELPER, Terri Unavailable Unavailable Unavailable Vega Meaghan, La Unavailable CARISSA CANON-MINH, SURJIT Lozada Primary Care Physicia n CARISSA BANKS, SURJIT Lozada Attending Unava ilable CARISSA PHYSICIAN SCRIBE-INGREDIENT SCALER HELPER, SURJIT Lozada Primary Care Unava ilable CARISSA PHYSICIAN SCRIBE-INGREDIENT SCALER HELPER, SURJIT Lozada Attending Unava ilable CARISSA PHYSICIAN SCRIBE-INGREDIENT SCALER HELPER, SURJIT Lozada Primary Care Unava ilable CARISSA BANKS, SURJIT S Attending Celine FERRER APRN-INGREDIENT SCALER HELPER, SURJIT Lozada Primary Care Celine BANKS, SURJIT Lozada Attending Celine FONTAINEINGREDIENT SCALER HELPER, SURJIT S Primary Care Celine Huffam MINH, Alina Unavailable Yamini Ledezma Unavailable Channing CAMPBELLN, Nadeem Unavailable Unavailable Evette IVEY, Latia Sanz Unavailable Allergies Allergy Classification Reported Allergen(s) Allergy Type Date of Onset Reaction(s) Facility (1 source) allergy to substance [facility] Work Phone: Medications Current Medications Medication Drug Class(es) Dates Sig (Normalized) Sig (Original) atorvastatin 20 mg oral tablet (1 source) HMG-CoA Reductase Inhibitor Start: 05-27-2021 atorvastatin 20 mg oral tablet Dose : 20 mg = 1 tab(s), Oral, qDay, # 30 tab(s), 3 Refill(s), Pharmacy: [facility], 149, cm, 05/27/21 9:20:00 EDT, Height, kg, 05/27/21 9:20:00 EDT, Dosing Weight Start Date: 05/27/21 Status: Ordered biotin 5 mg oral capsule (3 sources) Start: 05-22-2020 biotin 5000 mcg oral caps 0 Refill(s) Start Date: 05/22/20 Status: Ordered Calcium (3 sources) Phosphate Binder, Calcium Start: 07-09-2020 calcium calcium, 0 Refill(s), 65.5 Start Date: 07/09/20 Status: Ordered Cholecalciferol (3 sources) Vitamin D Start: 09-15-2018 Vitamin D (3) 45 units oral capsule 0 Refill(s) Start Date: 09/15/18 Status: Ordered Emergen-C (2 sources) Start: 2021 Emergen-C 0 Refill(s) Start Date: 09/10/21 Status: Ordered Emergen-C oral powder for reconstitution (2 sources) Start: 09-15-2018 Emergen-C oral powder for reconstitution 0 Refill(s) Start Date: 09/15/18 Status: Ordered ezetimibe 10 mg oral tablet (7 sources) Dietary Cholesterol Absorption Inhibitor Start: 06-24-2021 ezetimibe 10 mg oral tablet Dose : 10 mg = 1 tab(s), Oral, qDay, # 90 tab(s), 3 Refill(s), Pharmacy: [id number], 148.5, cm, 07/23/22 9:24:00 EDT, Height, kg, 07/23/22 9:24:00 EDT, Dosing Weight Start Date: 07/23/22 Status: Ordered fexofenadine hydrochloride 180 mg oral tablet (2 sources) Histamine-1 Receptor Antagonist Start: 2021 Ashlyn 24 Hour Allergy oral tablet Dose : 180 mg = 1 tab(s), Oral, qDay, 0 Refill(s) Start Date: 09/10/21 Status: Ordered gabapentin 100 mg oral capsule (20 sources) Anti-epileptic Agent Start: 09-15-2018 gabapentin 100 mg oral capsule Dose : 100 mg = 1 cap(s), Oral, BID, # 60 cap(s), 0 Refill(s) Start Date: 09/15/18 Status: Ordered Completed/Discontinued Medications Medication Drug Class(es) Dates Sig (Normalized) Sig (Original) ALPRAZolam 0.25 mg oral tablet (12 sources) Benzodiazepine End: 09-07-2018 Xanax 0.25 MG Oral Tablet 1 tab prn for 0 days Refills: 0 Ordered: 07-Sep-2018 Gravius CLERICAL ADJUSTER, Svetlana End : 07-Sep-2018 Inactive betamethasone 0.5 mg/ml topical cream (11 sources) Corticosteroid Start: 12-02-2020 End: 10-07-2022 betamethasone dipropionate 0.05 % topical cream 3 mm apply to lesions sparinly bid for 0 days Quantity: 15 {Gram} Refills: 0 Ordered: 07-Oct-2022 Slarb GROUNDS WORKER, Justa Start : 02-Dec-2020 End : 07-Oct-2022 Inactive Problems Active Problems Problem Classification Problem Date Documented Da te Episodic/Chronic Acquired foot deformities (17 sources) Deformity of toe; Translations: [Toe deformity, right] 03-24-2018 Episodic Past or Other Problems Problem Classification Problem Date Documented Date Episodic/Chronic Osteoarthritis (2 sources) Osteoarthritis of left knee joint; Translations: [Osteoarthritis of left knee, unspecified osteoarthritis type] 09-07-2018 Other nutritional; endocrine; and metabolic disorders (8 sources) Body mass index 25-29 - overweight; Translations: [BMI 26.0-26.9,adult] Resolved: 11-20-2019 09-07-2018 Episodic Other skin disorders (2 sources) Abnormality of nail surface; Translations: [Abnormality of nail surface] 09-07-2018 Unclassified (20 sources) multiple skin tags 08-12-2017 Results Test Name Value Interpretation Reference Range Facil ity Vital Signs Date Time Vital Sign Value Performing Clinician Facility 10-26-2022 13:090400 Body height 152.4 cm Justa Marley LPN [facility] Work Phone: 10-26-2022 13:09-0400 Body mass index (BMI) [Ratio] 27.93 kg/m2 Justa Marley LPN [facility]; [facility] Work Phone: 10-26-2022 13:09-0400 Body surface area Derived from formula 1.62 m2 Justa Marley LPN [facility]; [facility] Work Phone: 10-26-2022 13:09-0400 Body temperature 98 [degF] Justa Marley LPN [facility]; [facility] Work Phone: Encounters Encounter Date Encounter Type Care Provider Facility Start: 10-26-2022 End: 10-26-2022 Office outpatient visit 15 minutes Milvia Guille DO Work Phone: [facility] Start: 10-19-2022 End: 10-19-2022 Office outpatient visit 10 minutes Milvia Guille DO Work Phone: [facility] Start: 10-07-2022 Review Milvia Guerreroo n DO Work Phone: [facility] Start: 10-07-2022 End: 10-07-2022 Office outpatient visit 15 minutes Milvia Guille DO Work Phone: [facility] Start: 08-31-2022 End: 09-01-2022 ambulatory SURJIT FERRER PHYSICIAN SCRIBE-INGREDIENT SCALER HELPER Facility:[facility] Start: 08-31-2022 End: 08-31-2022 Patient encounter procedure SURJIT FERRER PHYSICIAN SCRIBE-INGREDIENT SCALER HELPER [facility] Start: 07-29-2022 End: 07-30-2022 ambulatory SURJIT FERRER PHYSICIAN SCRIBE-INGREDIENT SCALER HELPER Facility:[facility] Start: 07-23-2022 End: 07-24-2022 ambulatory SURJIT FERRER PHYSICIAN SCRIBE-INGREDIENT SCALER HELPER Facility:[facility] Start: 2021 End: 09-11-2021 ambulatory SURJIT FERRER PHYSICIAN SCRIBE-INGREDIENT SCALER HELPER Facility:[facility] Start: 2021 End: 2021 Patient encounter procedure SURJIT FERRER PHYSICIAN SCRIBE-INGREDIENT SCALER HELPER [facility] Start: 05-27-2021 End: 05-27-2021 Patient encounter procedure SURJIT FERRER PHYSICIAN SCRIBE-INGREDIENT SCALER HELPER [facility] Start: 12-09-2020 End: 12-09-2020 Annotation/Addendum Milvia Guille DO Work Phone: [facility] Start: 12-02-2020 End: 12-02-2020 Office outpatient visit 15 minutes Milvia Guille DO Work Phone: [facility] Start: 10-24-2020 End: 10-24-2020 Office outpatient visit 10 minutes Milvia Guille DO Work Phone: [facility] Start: 11-20-2019 End: 11-20-2019 Office outpatient visit 15 minutes Milvia Guille DO Work Phone: [facility] Start: 11-20-2019 Review Milvia Fearo n DO Work Phone: [facility] Start: 03-15-2019 End: 03-15-2019 Annotation/Addendum Milvia Guille DO Work Phone: [facility] Start: 03-14-2019 End: 03-14-2019 Office outpatient visit 15 minutes Milvia Guille DO Work Phone: [facility] Start: 09-07-2018 End: 09-07-2018 Office outpatient visit 10 minutes Milvia Abdi [facility] Start: 04-06-2018 End: 04-06-2018 Office outpatient visit 25 minutes Milvia Abdi [facility] Start: 04-06-2018 Review Milvia Obrien [facility] Start: 03-24-2018 Patient encounter procedure Milvia Abdi [facility] Start: 03-24-2018 End: 03-24-2018 Office outpatient visit 15 minutes Milvia Han [facility] Start: 09-14-2017 End: 09-14-2017 Office outpatient visit 15 minutes Milvia Han [facility] Start: 09-02-2017 End: 09-02-2017 Office outpatient visit 15 minutes Milvia Han [facility] Start: 08-12-2017 End: 08-12-2017 Office outpatient visit 15 minutes Milvia Han [facility] Start: 05-07-2017 End: 05-07-2017 Office outpatient visit 10 minutes Milvia Han [facility] Start: 09-21-2016 End: 09-21-2016 Office outpatient visit 15 minutes Milvia Han [facility] Start: 09-18-2016 End: 09-18-2016 Office outpatient visit 15 minutes Milvia Abdi [facility] Start: 11-26-2015 End: 11-26-2015 Office outpatient visit 15 minutes Milvia Han [facility] Start: 11-14-2015 End: 11-14-2015 Office outpatient visit 10 minutes Milvia Abdi [facility] Start: 07-23-2015 End: 07-23-2015 Office outpatient visit 25 minutes Milvia Han [facility] Internal [facility] Start: 07-23-2014 End: 07-23-2014 Office outpatient visit 15 minutes Milvia Han [facility] Start: 09-14-2013 End: 09-14-2013 Patient encounter procedure Milvia Abdi [facility] Start: 07-11-2013 End: 07-11-2013 Patient encounter procedure Milvia Abdi [facility] Start: 07-22-2012 End: 07-24-2012 Patient encounter procedure Milvia Han [facility] Start: 07-19-2012 End: 07-20-2012 Patient encounter procedure Milvia Han [facility] Start: 09-11-2008 End: 09-12-2008 Patient encounter procedure Milvia Han [facility] Start: 07-16-2008 End: 07-16-2008 Patient encounter procedure Milvia Han [facility] Procedures Date Procedure Procedure Detail Performing Clinician Start: 11-20-2003 Excision of buncollins FERRER PHYSICIAN SCRIBE-INGREDIENT SCALER HELPER Replacement of total knee joint Justa Marley GROUNDS WORKER Plan of Treatment Date Care Activity Detail Author Start: 10-26-2022 Procedure Education Eprescribed prescriptions (G8553) [facility]; [facility] Work Phone: Start: 10-26-2022 Provider Instructions for Treatment Follow up with dermatology if the rash does not resolve. [facility]; [facility] Work Phone: Start: 10-19-2022 Procedure Education Eprescribed prescriptions (G8553) [facility]; [facility] Work Phone: Start: 10-07-2022 Procedure Education Eprescribed prescriptions (G8553) [facility]; [facility] Work Phone: Start: 10-07-2022 Provider Instructions for Treatment Follow up as needed [facility] Work Phone: Start: 12-02-2020 Procedure Education Eprescribed prescriptions (G8553) [facility]; [facility] Work Phone: Start: 12-02-2020 Provider Instructions for Treatment Follow up if no improvement or if symptoms worsen [facility]; [facility] Work Phone: Start: 10-24-2020 Procedure Education Eprescribed prescriptions (G8553) [facility]; [facility] Work Phone: Start: 11-20-2019 Procedure Education Eprescribed prescriptions (G8553) [facility] Work Phone: Start: 11-20-2019 Provider Instructions for Treatment [facility] Work Phone: Start: 03-14-2019 Procedure Education Eprescribed prescriptions (G8553) [facility] Work Phone: Start: 03-14-2019 Provider Instructions for Treatment Follow up if no improvement or if symptoms worsen [facility] Work Phone: Start: 09-07-2018 Procedure Education Eprescribed prescriptions (G8553) [facility] Work Phone: Start: 04-06-2018 Comprehensive metabolic panel METABOLIC PANEL, COMPREHENSIVE (28770) [facility] Work Phone: Start: 04-06-2018 Blood count complete auto&auto difrntl wbc CBC W/AUTO DIFF WBC (10335) [facility] Work Phone: Start: 04-06-2018 Procedure Education Eprescribed prescriptions (G8553) [facility] Work Phone: Start: 04-06-2018 Provider Instructions for Treatment Solu Medrol Injection/ Education [facility] Work Phone: Start: 03-24-2018 Procedure Education Eprescribed prescriptions (G8553) [facility] Work Phone: Start: 09-14-2017 Patient Education Insect Bites and Stings: bug bite [facility] Work Phone: Start: 09-14-2017 Procedure Education Eprescribed prescriptions (G8553) [facility] Work Phone: Start: 09-14-2017 Provider Instructions for Treatment Follow up if no improvement or if symptoms worsen [facility] Work Phone: Start: 08-12-2017 Patient Education Poison Man[place], [place], and [place]: allergic reaction [facility] Work Phone: Start: 08-12-2017 Procedure Education Eprescribed prescriptions (G8553) [facility] Work Phone: Start: 08-12-2017 Provider Instructions for Treatment Follow up if no improvement or if symptoms worsen [facility] Work Phone: Start: 09-21-2016 Procedure Education Eprescribed prescriptions (G8553) [facility] Work Phone: Start: 09-21-2016 Provider Instructions for Treatment Follow up if no improvement or if symptoms worsen [facility] Work Phone: Start: 09-18-2016 Procedure Education Eprescribed prescriptions (G8553) [facility] Work Phone: Start: 11-26-2015 Provider Instructions for Treatment [facility] Work Phone: Start: 07-23-2015 Procedure Education Eprescribed prescriptions (G8553) [facility] Work Phone: Start: 07-23-2015 Provider Instructions for Treatment Follow up if no improvement or if symptoms worsen [facility] Work Phone: Start: 07-23-2014 Provider Instructions for Treatment Skin Tags [facility] Work Phone: Start: 09-14-2013 Patient Education Poison [place], [place], and [place]: allergy [facility] Work Phone: Start: 09-14-2013 Procedure Education Eprescribed prescriptions (G8553) [facility] Work Phone: Start: 07-11-2013 Provider Instructions for Treatment [facility] Work Phone: Start: 07-22-2012 Provider Instructions for Treatment *Antibiotic Usage Education - Female [facility] Work Phone: [facility] Work [facility]: [facility] Work Phone: [facility] Work Phone: [facility] Work Phone: [facility] Work Phone: [facility] Work Phone: [facility] Work Phone: [facility] Work Phone: [facility] Work Phone: [facility] Work Phone[facility] Work Phone: [facility] Work Phone: [facility] Work Phone: Immunizations Immunization Date Immunization Notes Care Provider [address]15-2012 tetanus toxoid, redu jeniffer diphtheria toxoid, and acellular pertussis vaccine, adsorbed SURJIT FERRER PHYSICIAN SCRIBE-INGREDIENT SCALER HELPER [facility] Payers Date Payer Category Payer Private Health Insurance [id number] 2021 Medicare [id number] 2021 Unknown [id number] 2018 Unknown [id number] 1955 Unknown [id number] 1955 Unknown [id number] 1955 Unknown [id number] 1955 Unknown [id number] 1955 Unknown [id number] Unknown Unknown [id number] Social History Date Type Detail Facility Caffeine Use [facility] Work Phone: Start: 09-15-2018 Never smoked t obacco (finding) [facility] Sex Assigned At [facility] Clinical Notes 08-27-2021 LaboratoryLaboratoryRadiology Note Date & Type Note Facility 08-27-2021 Evaluation + Plan note Future Scheduled TestsLipid Profile 08/27/21Complete Metabolic Panel 08/27/21 [facility] Evaluation + Plan note Future Appointments Appointment Date:06/10/2021 09:00:00 AM Scheduled Provider:SURJIT FERRER PHYSICIAN SCRIBE-INGREDIENT SCALER HELPER Location:[facility] Appointment Type:PC OV Future Scheduled TestsLipid Profile 08/27/21Complete Metabolic Panel 08/27/21MA Mammo Screening Bilateral w/ [place] 05/27/21 [facility] Hospital course Narrative No data available for this section [facility] Hospital Discharge instructions No data available for this section [facility] Work Phone: Instructions* Name Dates Details How to access health informa tion online Indication:Nonsmoker Start:20-Nov-2019 Instruction Type:Patient Education How to access health informa tion online - Detail Indication:Nonsmoker Start:20-Nov-2019 Instruction Type:Patient Education Patient Instructions Indication:Nonsmoker Start:20-Nov-2019 Instruction Type:Provider Instructions for Treatment How to access health informa tion online Indication:BMI 28.0-28.9,adult Start:14-Mar-2019 Instruction Type:Patient Education How to access health informa tion online - Detail Indication:BMI 28.0-28.9,adult Start:14-Mar-2019 Instruction Type:Patient Education Patient Instructions Indication:BMI 28.0-28.9,adult Start:14-Mar-2019 Instruction Type:Provider Instructions for Treatment How to access health informa tion online Indication:BMI 27.0-27.9,adult Start:07-Sep-2018 Instruction Type:Patient Education How to access health informa tion online - Detail Indication:BMI 27.0-27.9,adult Start:07-Sep-2018 Instruction Type:Patient Education Patient Instructions Indication:BMI 27.0-27.9,adult Start:07-Sep-2018 Instruction Type:Provider Instructions for Treatment How to access health informa tion online Indication:BMI 26.0-26.9,adult Start:06-Apr-2018 Instruction Type:Patient Education How to access health informa tion online - Detail Indication:BMI 26.0-26.9,adult Start:06-Apr-2018 Instruction Type:Patient Education Patient Instructions Indication:BMI 26.0-26.9,adult Start:06-Apr-2018 Instruction Type:Provider Instructions for Treatment How to access health informa tion online Indication:Nonsmoker Start:24-Mar-2018 Instruction Type:Patient Education How to access health informa tion online - Detail Indication:Nonsmoker Start:24-Mar-2018 Instruction Type:Patient Education Patient Instructions Indication:Discolored nails Start:24-Mar-2018 Instruction Type:Provider Instructions for Treatment How to access health informa tion online Indication:Nonsmoker Start:14-Sep-2017 Instruction Type:Patient Education How to access health informa tion online - Detail Indication:Nonsmoker Start:14-Sep-2017 Instruction Type:Patient Education Patient Instructions Indication:Itch of skin Start:14-Sep-2017 Instruction Type:Provider Instructions for Treatment How to access health informa tion online Indication:Nonsmoker Start:12-Aug-2017 Instruction Type:Patient Education How to access health informa tion online - Detail Indication:Nonsmoker Start:12-Aug-2017 Instruction Type:Patient Education Patient Instructions Indication:Rash Start:12-Aug-2017 Instruction Type:Provider Instructions for Treatment How to access health informa tion online Indication:Nonsmoker Start:07-May-2017 Instruction Type:Patient Education How to access health informa tion online - Detail Indication:Nonsmoker Start:07-May-2017 Instruction Type:Patient Education Patient Instructions Indication:Nonsmoker Start:07-May-2017 Instruction Type:Provider Instructions for Treatment How to access health informa tion online Indication:BMI 26.0-26.9,adult Start:21-Sep-2016 Instruction Type:Patient Education How to access health informa tion online - Detail Indication:BMI 26.0-26.9,adult Start:21-Sep-2016 Instruction Type:Patient Education Patient Instructions Indication:BMI 26.0-26.9,adult Start:21-Sep-2016 Instruction Type:Provider Instructions for Treatment Patient Instructions Indication:Bee sting reaction Start:18-Sep-2016 Instruction Type:Provider Instructions for Treatment How to access health informa tion online Indication:Bee sting reaction Start:18-Sep-2016 Instruction Type:Patient Education How to access health informa tion online - Detail Indication:Bee sting reaction Start:18-Sep-2016 Instruction Type:Patient Education Patient Instructions Indication:Bee sting reaction Start:18-Sep-2016 Instruction Type:Provider Instructions for Treatment How to access health informa tion online Indication:Mosquito bite, initial encounter Start:14-Nov-2015 Instruction Type:Patient Education How to access health informa tion online - Detail Indication:Mosquito bite, initial encounter Start:14-Nov-2015 Instruction Type:Patient Education Patient Instructions Indication:Mosquito bite, initial encounter Start:14-Nov-2015 Instruction Type:Provider Instructions for Treatment How to access health informa tion online Indication:Lower back pain Start:23-Jul-2015 Instruction Type:Patient Education How to access health informa tion online - Detail Indication:Lower back pain Start:23-Jul-2015 Instruction Type:Patient Education Patient Instructions Indication:Lower back pain Start:23-Jul-2015 Instruction Type:Provider Instructions for Treatment How to access health informa tion online Indication:Poison manan Start:14-Sep-2013 Instruction Type:Patient Education How to access health informa tion online - Detail Indication:Poison manan Start:14-Sep-2013 Instruction Type:Patient Education Patient Instructions Indication:Poison manan Start:14-Sep-2013 Instruction Type:Provider Instructions for Treatment Patient Instructions Indication:Numerous moles Start:11-Jul-2013 Instruction Type:Provider Instructions for Treatment Patient Instructions Indication:Inflamed skin tag Start:19-Jul-2012 Instruction Type:Provider Instructions for Treatment [facility] Work Phone: Instructions* Name Dates Details Patient Instructions Indication:Right ear pain Start:07-Oct-2022 Instruction Type:Provider Instructions for Treatment How to Access Health Informa tion Online using Patient Portal and 3rd [employer] Apps Indication:Right ear pain Start:07-Oct-2022 Instruction Type:Patient Education Patient Instructions Indication:BMI 27.0-27.9,adult Start:02-Dec-2020 Instruction Type:Provider Instructions for Treatment How to Access Health Informa tion Online using Patient Portal and 3rd [employer] Apps Indication:BMI 27.0-27.9,adult Start:02-Dec-2020 Instruction Type:Patient Education Patient Instructions Indication:Nonsmoker Start:24-Oct-2020 Instruction Type:Provider Instructions for Treatment How to Access Health Informa tion Online using Patient Portal and [employer]rd [employer] Apps Indication:Nonsmoker Start:24-Oct-2020 Instruction Type:Patient Education How to access health informa tion online Indication:Nonsmoker Start:20-Nov-2019 Instruction Type:Patient Education How to access health informa tion online - Detail Indication:Nonsmoker Start:20-Nov-2019 Instruction Type:Patient Education Patient Instructions Indication:Nonsmoker Start:20-Nov-2019 Instruction Type:Provider Instructions for Treatment How to access health informa tion online Indication:BMI 28.0-28.9,adult Start:14-Mar-2019 Instruction Type:Patient Education How to access health informa tion online - Detail Indication:BMI 28.0-28.9,adult Start:14-Mar-2019 Instruction Type:Patient Education Patient Instructions Indication:BMI 28.0-28.9,adult Start:14-Mar-2019 Instruction Type:Provider Instructions for Treatment How to access health informa tion online Indication:BMI 27.0-27.9,adult Start:07-Sep-2018 Instruction Type:Patient Education How to access health informa tion online - Detail Indication:BMI 27.0-27.9,adult Start:07-Sep-2018 Instruction Type:Patient Education Patient Instructions Indication:BMI 27.0-27.9,adult Start:07-Sep-2018 Instruction Type:Provider Instructions for Treatment How to access health informa tion online Indication:BMI 26.0-26.9,adult Start:06-Apr-2018 Instruction Type:Patient Education How to access health informa tion online - Detail Indication:BMI 26.0-26.9,adult Start:06-Apr-2018 Instruction Type:Patient Education Patient Instructions Indication:BMI 26.0-26.9,adult Start:06-Apr-2018 Instruction Type:Provider Instructions for Treatment How to access health informa tion online Indication:Nonsmoker Start:24-Mar-2018 Instruction Type:Patient Education How to access health informa tion online - Detail Indication:Nonsmoker Start:24-Mar-2018 Instruction Type:Patient Education Patient Instructions Indication:Discolored nails Start:24-Mar-2018 Instruction Type:Provider Instructions for Treatment How to access health informa tion online Indication:Nonsmoker Start:14-Sep-2017 Instruction Type:Patient Education How to access health informa tion online - Detail Indication:Nonsmoker Start:14-Sep-2017 Instruction Type:Patient Education Patient Instructions Indication:Itch of skin Start:14-Sep-2017 Instruction Type:Provider Instructions for Treatment How to access health informa tion online Indication:Nonsmoker Start:12-Aug-2017 Instruction Type:Patient Education How to access health informa tion online - Detail Indication:Nonsmoker Start:12-Aug-2017 Instruction Type:Patient Education Patient Instructions Indication:Rash Start:12-Aug-2017 Instruction Type:Provider Instructions for Treatment How to access health informa tion online Indication:Nonsmoker Start:07-May-2017 Instruction Type:Patient Education How to access health informa tion online - Detail Indication:Nonsmoker Start:07-May-2017 Instruction Type:Patient Education Patient Instructions Indication:Nonsmoker Start:07-May-2017 Instruction Type:Provider Instructions for Treatment How to access health informa tion online Indication:BMI 26.0-26.9,adult Start:21-Sep-2016 Instruction Type:Patient Education How to access health informa tion online - Detail Indication:BMI 26.0-26.9,adult Start:21-Sep-2016 Instruction Type:Patient Education Patient Instructions Indication:BMI 26.0-26.9,adult Start:21-Sep-2016 Instruction Type:Provider Instructions for Treatment Patient Instructions Indication:Bee sting reaction Start:18-Sep-2016 Instruction Type:Provider Instructions for Treatment How to access health informa tion online Indication:Bee sting reaction Start:18-Sep-2016 Instruction Type:Patient Education How to access health informa tion online - Detail Indication:Bee sting reaction Start:18-Sep-2016 Instruction Type:Patient Education Patient Instructions Indication:Bee sting reaction Start:18-Sep-2016 Instruction Type:Provider Instructions for Treatment How to access health informa tion online Indication:Mosquito bite, initial encounter Start:14-Nov-2015 Instruction Type:Patient Education How to access health informa tion online - Detail Indication:Mosquito bite, initial encounter Start:14-Nov-2015 Instruction Type:Patient Education Patient Instructions Indication:Mosquito bite, initial encounter Start:14-Nov-2015 Instruction Type:Provider Instructions for Treatment How to access health informa tion online Indication:Lower back pain Start:23-Jul-2015 Instruction Type:Patient Education How to access health informa tion online - Detail Indication:Lower back pain Start:23-Jul-2015 Instruction Type:Patient Education Patient Instructions Indication:Lower back pain Start:23-Jul-2015 Instruction Type:Provider Instructions for Treatment How to access health informa tion online Indication:Poison manan Start:14-Sep-2013 Instruction Type:Patient Education How to access health informa tion online - Detail Indication:Poison manan Start:14-Sep-2013 Instruction Type:Patient Education Patient Instructions Indication:Poison manan Start:14-Sep-2013 Instruction Type:Provider Instructions for Treatment Patient Instructions Indication:Numerous moles Start:11-Jul-2013 Instruction Type:Provider Instructions for Treatment Patient Instructions Indication:Inflamed skin tag Start:19-Jul-2012 Instruction Type:Provider Instructions for Treatment [facility]; [facility] Work Phone: Instructions* Name Dates Details Patient Instructions Indication:Right ear pain Start:07-Oct-2022 Instruction Type:Provider Instructions for Treatment How to Access Health Informa tion Online using Patient Portal and [employer]rd [employer] Apps Indication:Right ear pain Start:07-Oct-2022 Instruction Type:Patient Education Patient Instructions Indication:BMI 27.0-27.9,adult Start:02-Dec-2020 Instruction Type:Provider Instructions for Treatment How to Access Health Informa tion Online using Patient Portal and [employer]rd [employer] Apps Indication:BMI 27.0-27.9,adult Start:02-Dec-2020 Instruction Type:Patient Education Patient Instructions Indication:Nonsmoker Start:24-Oct-2020 Instruction Type:Provider Instructions for Treatment How to Access Health Informa tion Online using Patient Portal and [employer]rd [employer] Apps Indication:Nonsmoker Start:24-Oct-2020 Instruction Type:Patient Education How to access health informa tion online Indication:Nonsmoker Start:20-Nov-2019 Instruction Type:Patient Education How to access health informa tion online - Detail Indication:Nonsmoker Start:20-Nov-2019 Instruction Type:Patient Education Patient Instructions Indication:Nonsmoker Start:20-Nov-2019 Instruction Type:Provider Instructions for Treatment How to access health informa tion online Indication:BMI 28.0-28.9,adult Start:14-Mar-2019 Instruction Type:Patient Education How to access health informa tion online - Detail Indication:BMI 28.0-28.9,adult Start:14-Mar-2019 Instruction Type:Patient Education Patient Instructions Indication:BMI 28.0-28.9,adult Start:14-Mar-2019 Instruction Type:Provider Instructions for Treatment How to access health informa tion online Indication:BMI 27.0-27.9,adult Start:07-Sep-2018 Instruction Type:Patient Education How to access health informa tion online - Detail Indication:BMI 27.0-27.9,adult Start:07-Sep-2018 Instruction Type:Patient Education Patient Instructions Indication:BMI 27.0-27.9,adult Start:07-Sep-2018 Instruction Type:Provider Instructions for Treatment How to access health informa tion online Indication:BMI 26.0-26.9,adult Start:06-Apr-2018 Instruction Type:Patient Education How to access health informa tion online - Detail Indication:BMI 26.0-26.9,adult Start:06-Apr-2018 Instruction Type:Patient Education Patient Instructions Indication:BMI 26.0-26.9,adult Start:06-Apr-2018 Instruction Type:Provider Instructions for Treatment How to access health informa tion online Indication:Nonsmoker Start:24-Mar-2018 Instruction Type:Patient Education How to access health informa tion online - Detail Indication:Nonsmoker Start:24-Mar-2018 Instruction Type:Patient Education Patient Instructions Indication:Discolored nails Start:24-Mar-2018 Instruction Type:Provider Instructions for Treatment How to access health informa tion online Indication:Nonsmoker Start:14-Sep-2017 Instruction Type:Patient Education How to access health informa tion online - Detail Indication:Nonsmoker Start:14-Sep-2017 Instruction Type:Patient Education Patient Instructions Indication:Itch of skin Start:14-Sep-2017 Instruction Type:Provider Instructions for Treatment How to access health informa tion online Indication:Nonsmoker Start:12-Aug-2017 Instruction Type:Patient Education How to access health informa tion online - Detail Indication:Nonsmoker Start:12-Aug-2017 Instruction Type:Patient Education Patient Instructions Indication:Rash Start:12-Aug-2017 Instruction Type:Provider Instructions for Treatment How to access health informa tion online Indication:Nonsmoker Start:07-May-2017 Instruction Type:Patient Education How to access health informa tion online - Detail Indication:Nonsmoker Start:07-May-2017 Instruction Type:Patient Education Patient Instructions Indication:Nonsmoker Start:07-May-2017 Instruction Type:Provider Instructions for Treatment How to access health informa tion online Indication:BMI 26.0-26.9,adult Start:21-Sep-2016 Instruction Type:Patient Education How to access health informa tion online - Detail Indication:BMI 26.0-26.9,adult Start:21-Sep-2016 Instruction Type:Patient Education Patient Instructions Indication:BMI 26.0-26.9,adult Start:21-Sep-2016 Instruction Type:Provider Instructions for Treatment Patient Instructions Indication:Bee sting reaction Start:18-Sep-2016 Instruction Type:Provider Instructions for Treatment How to access health informa tion online Indication:Bee sting reaction Start:18-Sep-2016 Instruction Type:Patient Education How to access health informa tion online - Detail Indication:Bee sting reaction Start:18-Sep-2016 Instruction Type:Patient Education Patient Instructions Indication:Bee sting reaction Start:18-Sep-2016 Instruction Type:Provider Instructions for Treatment How to access health informa tion online Indication:Mosquito bite, initial encounter Start:14-Nov-2015 Instruction Type:Patient Education How to access health informa tion online - Detail Indication:Mosquito bite, initial encounter Start:14-Nov-2015 Instruction Type:Patient Education Patient Instructions Indication:Mosquito bite, initial encounter Start:14-Nov-2015 Instruction Type:Provider Instructions for Treatment How to access health informa tion online Indication:Lower back pain Start:23-Jul-2015 Instruction Type:Patient Education How to access health informa tion online - Detail Indication:Lower back pain Start:23-Jul-2015 Instruction Type:Patient Education Patient Instructions Indication:Lower back pain Start:23-Jul-2015 Instruction Type:Provider Instructions for Treatment How to access health informa tion online Indication:Poison manan Start:14-Sep-2013 Instruction Type:Patient Education How to access health informa tion online - Detail Indication:Poison manan Start:14-Sep-2013 Instruction Type:Patient Education Patient Instructions Indication:Poison manan Start:14-Sep-2013 Instruction Type:Provider Instructions for Treatment Patient Instructions Indication:Numerous moles Start:11-Jul-2013 Instruction Type:Provider Instructions for Treatment Patient Instructions Indication:Inflamed skin tag Start:19-Jul-2012 Instruction Type:Provider Instructions for Treatment [facility]; [facility] Work Phone: Instructions* Name Dates Details Patient Instructions Indication:Nonsmoker Start:19-Oct-2022 Instruction Type:Provider Instructions for Treatment How to Access Health Informa tion Online using Patient Portal and [employer] Apps Indication:Nonsmoker Start:19-Oct-2022 Instruction Type:Patient Education Patient Instructions Indication:Right ear pain Start:07-Oct-2022 Instruction Type:Provider Instructions for Treatment How to Access Health Informa tion Online using Patient Portal and [employer] Apps Indication:Right ear pain Start:07-Oct-2022 Instruction Type:Patient Education Patient Instructions Indication:BMI 27.0-27.9,adult Start:02-Dec-2020 Instruction Type:Provider Instructions for Treatment How to Access Health Informa tion Online using Patient Portal and [employer]rd [employer] Apps Indication:BMI 27.0-27.9,adult Start:02-Dec-2020 Instruction Type:Patient Education Patient Instructions Indication:Nonsmoker Start:24-Oct-2020 Instruction Type:Provider Instructions for Treatment How to Access Health Informa tion Online using Patient Portal and [employer]rd [employer] Apps Indication:Nonsmoker Start:24-Oct-2020 Instruction Type:Patient Education How to access health informa tion online Indication:Nonsmoker Start:20-Nov-2019 Instruction Type:Patient Education How to access health informa tion online - Detail Indication:Nonsmoker Start:20-Nov-2019 Instruction Type:Patient Education Patient Instructions Indication:Nonsmoker Start:20-Nov-2019 Instruction Type:Provider Instructions for Treatment How to access health informa tion online Indication:BMI 28.0-28.9,adult Start:14-Mar-2019 Instruction Type:Patient Education How to access health informa tion online - Detail Indication:BMI 28.0-28.9,adult Start:14-Mar-2019 Instruction Type:Patient Education Patient Instructions Indication:BMI 28.0-28.9,adult Start:14-Mar-2019 Instruction Type:Provider Instructions for Treatment How to access health informa tion online Indication:BMI 27.0-27.9,adult Start:07-Sep-2018 Instruction Type:Patient Education How to access health informa tion online - Detail Indication:BMI 27.0-27.9,adult Start:07-Sep-2018 Instruction Type:Patient Education Patient Instructions Indication:BMI 27.0-27.9,adult Start:07-Sep-2018 Instruction Type:Provider Instructions for Treatment How to access health informa tion online Indication:BMI 26.0-26.9,adult Start:06-Apr-2018 Instruction Type:Patient Education How to access health informa tion online - Detail Indication:BMI 26.0-26.9,adult Start:06-Apr-2018 Instruction Type:Patient Education Patient Instructions Indication:BMI 26.0-26.9,adult Start:06-Apr-2018 Instruction Type:Provider Instructions for Treatment How to access health informa tion online Indication:Nonsmoker Start:24-Mar-2018 Instruction Type:Patient Education How to access health informa tion online - Detail Indication:Nonsmoker Start:24-Mar-2018 Instruction Type:Patient Education Patient Instructions Indication:Discolored nails Start:24-Mar-2018 Instruction Type:Provider Instructions for Treatment How to access health informa tion online Indication:Nonsmoker Start:14-Sep-2017 Instruction Type:Patient Education How to access health informa tion online - Detail Indication:Nonsmoker Start:14-Sep-2017 Instruction Type:Patient Education Patient Instructions Indication:Itch of skin Start:14-Sep-2017 Instruction Type:Provider Instructions for Treatment How to access health informa tion online Indication:Nonsmoker Start:12-Aug-2017 Instruction Type:Patient Education How to access health informa tion online - Detail Indication:Nonsmoker Start:12-Aug-2017 Instruction Type:Patient Education Patient Instructions Indication:Rash Start:12-Aug-2017 Instruction Type:Provider Instructions for Treatment How to access health informa tion online Indication:Nonsmoker Start:07-May-2017 Instruction Type:Patient Education How to access health informa tion online - Detail Indication:Nonsmoker Start:07-May-2017 Instruction Type:Patient Education Patient Instructions Indication:Nonsmoker Start:07-May-2017 Instruction Type:Provider Instructions for Treatment How to access health informa tion online Indication:BMI 26.0-26.9,adult Start:21-Sep-2016 Instruction Type:Patient Education How to access health informa tion online - Detail Indication:BMI 26.0-26.9,adult Start:21-Sep-2016 Instruction Type:Patient Education Patient Instructions Indication:BMI 26.0-26.9,adult Start:21-Sep-2016 Instruction Type:Provider Instructions for Treatment Patient Instructions Indication:Bee sting reaction Start:18-Sep-2016 Instruction Type:Provider Instructions for Treatment How to access health informa tion online Indication:Bee sting reaction Start:18-Sep-2016 Instruction Type:Patient Education How to access health informa tion online - Detail Indication:Bee sting reaction Start:18-Sep-2016 Instruction Type:Patient Education Patient Instructions Indication:Bee sting reaction Start:18-Sep-2016 Instruction Type:Provider Instructions for Treatment How to access health informa tion online Indication:Mosquito bite, initial encounter Start:14-Nov-2015 Instruction Type:Patient Education How to access health informa tion online - Detail Indication:Mosquito bite, initial encounter Start:14-Nov-2015 Instruction Type:Patient Education Patient Instructions Indication:Mosquito bite, initial encounter Start:14-Nov-2015 Instruction Type:Provider Instructions for Treatment How to access health informa tion online Indication:Lower back pain Start:23-Jul-2015 Instruction Type:Patient Education How to access health informa tion online - Detail Indication:Lower back pain Start:23-Jul-2015 Instruction Type:Patient Education Patient Instructions Indication:Lower back pain Start:23-Jul-2015 Instruction Type:Provider Instructions for Treatment How to access health informa tion online Indication:Poison manan Start:14-Sep-2013 Instruction Type:Patient Education How to access health informa tion online - Detail Indication:Poison manan Start:14-Sep-2013 Instruction Type:Patient Education Patient Instructions Indication:Poison manan Start:14-Sep-2013 Instruction Type:Provider Instructions for Treatment Patient Instructions Indication:Numerous moles Start:11-Jul-2013 Instruction Type:Provider Instructions for Treatment Patient Instructions Indication:Inflamed skin tag Start:19-Jul-2012 Instruction Type:Provider Instructions for Treatment [facility]; [facility] Work Phone: Instructions* Name Dates Details Patient Instructions Indication:Bug bite with infection Start:26-Oct-2022 Instruction Type:Provider Instructions for Treatment How to Access Health Informa tion Online using Patient Portal and [employer] Apps Indication:Bug bite with infection Start:26-Oct-2022 Instruction Type:Patient Education Patient Instructions Indication:Nonsmoker Start:19-Oct-2022 Instruction Type:Provider Instructions for Treatment How to Access Health Informa tion Online using Patient Portal and [employer] Apps Indication:Nonsmoker Start:19-Oct-2022 Instruction Type:Patient Education Patient Instructions Indication:Right ear pain Start:07-Oct-2022 Instruction Type:Provider Instructions for Treatment How to Access Health Informa tion Online using Patient Portal and [employer] Apps Indication:Right ear pain Start:07-Oct-2022 Instruction Type:Patient Education Patient Instructions Indication:BMI 27.0-27.9,adult Start:02-Dec-2020 Instruction Type:Provider Instructions for Treatment How to Access Health Informa tion Online using Patient Portal and [employer]rd [employer] Apps Indication:BMI 27.0-27.9,adult Start:02-Dec-2020 Instruction Type:Patient Education Patient Instructions Indication:Nonsmoker Start:24-Oct-2020 Instruction Type:Provider Instructions for Treatment How to Access Health Informa tion Online using Patient Portal and [employer] Apps Indication:Nonsmoker Start:24-Oct-2020 Instruction Type:Patient Education How to access health informa tion online Indication:Nonsmoker Start:20-Nov-2019 Instruction Type:Patient Education How to access health informa tion online - Detail Indication:Nonsmoker Start:20-Nov-2019 Instruction Type:Patient Education Patient Instructions Indication:Nonsmoker Start:20-Nov-2019 Instruction Type:Provider Instructions for Treatment How to access health informa tion online Indication:BMI 28.0-28.9,adult Start:14-Mar-2019 Instruction Type:Patient Education How to access health informa tion online - Detail Indication:BMI 28.0-28.9,adult Start:14-Mar-2019 Instruction Type:Patient Education Patient Instructions Indication:BMI 28.0-28.9,adult Start:14-Mar-2019 Instruction Type:Provider Instructions for Treatment How to access health informa tion online Indication:BMI 27.0-27.9,adult Start:07-Sep-2018 Instruction Type:Patient Education How to access health informa tion online - Detail Indication:BMI 27.0-27.9,adult Start:07-Sep-2018 Instruction Type:Patient Education Patient Instructions Indication:BMI 27.0-27.9,adult Start:07-Sep-2018 Instruction Type:Provider Instructions for Treatment How to access health informa tion online Indication:BMI 26.0-26.9,adult Start:06-Apr-2018 Instruction Type:Patient Education How to access health informa tion online - Detail Indication:BMI 26.0-26.9,adult Start:06-Apr-2018 Instruction Type:Patient Education Patient Instructions Indication:BMI 26.0-26.9,adult Start:06-Apr-2018 Instruction Type:Provider Instructions for Treatment How to access health informa tion online Indication:Nonsmoker Start:24-Mar-2018 Instruction Type:Patient Education How to access health informa tion online - Detail Indication:Nonsmoker Start:24-Mar-2018 Instruction Type:Patient Education Patient Instructions Indication:Discolored nails Start:24-Mar-2018 Instruction Type:Provider Instructions for Treatment How to access health informa tion online Indication:Nonsmoker Start:14-Sep-2017 Instruction Type:Patient Education How to access health informa tion online - Detail Indication:Nonsmoker Start:14-Sep-2017 Instruction Type:Patient Education Patient Instructions Indication:Itch of skin Start:14-Sep-2017 Instruction Type:Provider Instructions for Treatment How to access health informa tion online Indication:Nonsmoker Start:12-Aug-2017 Instruction Type:Patient Education How to access health informa tion online - Detail Indication:Nonsmoker Start:12-Aug-2017 Instruction Type:Patient Education Patient Instructions Indication:Rash Start:12-Aug-2017 Instruction Type:Provider Instructions for Treatment How to access health informa tion online Indication:Nonsmoker Start:07-May-2017 Instruction Type:Patient Education How to access health informa tion online - Detail Indication:Nonsmoker Start:07-May-2017 Instruction Type:Patient Education Patient Instructions Indication:Nonsmoker Start:07-May-2017 Instruction Type:Provider Instructions for Treatment How to access health informa tion online Indication:BMI 26.0-26.9,adult Start:21-Sep-2016 Instruction Type:Patient Education How to access health informa tion online - Detail Indication:BMI 26.0-26.9,adult Start:21-Sep-2016 Instruction Type:Patient Education Patient Instructions Indication:BMI 26.0-26.9,adult Start:21-Sep-2016 Instruction Type:Provider Instructions for Treatment Patient Instructions Indication:Bee sting reaction Start:18-Sep-2016 Instruction Type:Provider Instructions for Treatment How to access health informa tion online Indication:Bee sting reaction Start:18-Sep-2016 Instruction Type:Patient Education How to access health informa tion online - Detail Indication:Bee sting reaction Start:18-Sep-2016 Instruction Type:Patient Education Patient Instructions Indication:Bee sting reaction Start:18-Sep-2016 Instruction Type:Provider Instructions for Treatment How to access health informa tion online Indication:Mosquito bite, initial encounter Start:14-Nov-2015 Instruction Type:Patient Education How to access health informa tion online - Detail Indication:Mosquito bite, initial encounter Start:14-Nov-2015 Instruction Type:Patient Education Patient Instructions Indication:Mosquito bite, initial encounter Start:14-Nov-2015 Instruction Type:Provider Instructions for Treatment How to access health informa tion online Indication:Lower back pain Start:23-Jul-2015 Instruction Type:Patient Education How to access health informa tion online - Detail Indication:Lower back pain Start:23-Jul-2015 Instruction Type:Patient Education Patient Instructions Indication:Lower back pain Start:23-Jul-2015 Instruction Type:Provider Instructions for Treatment How to access health informa tion online Indication:Poison manan Start:14-Sep-2013 Instruction Type:Patient Education How to access health informa tion online - Detail Indication:Poison manan Start:14-Sep-2013 Instruction Type:Patient Education Patient Instructions Indication:Poison manan Start:14-Sep-2013 Instruction Type:Provider Instructions for Treatment Patient Instructions Indication:Numerous moles Start:11-Jul-2013 Instruction Type:Provider Instructions for Treatment Patient Instructions Indication:Inflamed skin tag Start:19-Jul-2012 Instruction Type:Provider Instructions for Treatment [facility] Work Phone: Instructions* Name Dates Details Patient Instructions Indication:Bug bite with infection Start:26-Oct-2022 Instruction Type:Provider Instructions for Treatment How to Access Health Informa tion Online using Patient Portal and 3rd [employer] Apps Indication:Bug bite with infection Start:26-Oct-2022 Instruction Type:Patient Education Patient Instructions Indication:Nonsmoker Start:19-Oct-2022 Instruction Type:Provider Instructions for Treatment How to Access Health Informa tion Online using Patient Portal and 3rd [employer] Apps Indication:Nonsmoker Start:19-Oct-2022 Instruction Type:Patient Education Patient Instructions Indication:Right ear pain Start:07-Oct-2022 Instruction Type:Provider Instructions for Treatment How to Access Health Informa tion Online using Patient Portal and 3rd [employer] Apps Indication:Right ear pain Start:07-Oct-2022 Instruction Type:Patient Education Patient Instructions Indication:BMI 27.0-27.9,adult Start:02-Dec-2020 Instruction Type:Provider Instructions for Treatment How to Access Health Informa tion Online using Patient Portal and 3rd [employer] Apps Indication:BMI 27.0-27.9,adult Start:02-Dec-2020 Instruction Type:Patient Education Patient Instructions Indication:Nonsmoker Start:24-Oct-2020 Instruction Type:Provider Instructions for Treatment How to Access Health Informa tion Online using Patient Portal and 3rd [employer] Apps Indication:Nonsmoker Start:24-Oct-2020 Instruction Type:Patient Education How to access health informa tion online Indication:Nonsmoker Start:20-Nov-2019 Instruction Type:Patient Education How to access health informa tion online - Detail Indication:Nonsmoker Start:20-Nov-2019 Instruction Type:Patient Education Patient Instructions Indication:Nonsmoker Start:20-Nov-2019 Instruction Type:Provider Instructions for Treatment How to access health informa tion online Indication:BMI 28.0-28.9,adult Start:14-Mar-2019 Instruction Type:Patient Education How to access health informa tion online - Detail Indication:BMI 28.0-28.9,adult Start:14-Mar-2019 Instruction Type:Patient Education Patient Instructions Indication:BMI 28.0-28.9,adult Start:14-Mar-2019 Instruction Type:Provider Instructions for Treatment How to access health informa tion online Indication:BMI 27.0-27.9,adult Start:07-Sep-2018 Instruction Type:Patient Education How to access health informa tion online - Detail Indication:BMI 27.0-27.9,adult Start:07-Sep-2018 Instruction Type:Patient Education Patient Instructions Indication:BMI 27.0-27.9,adult Start:07-Sep-2018 Instruction Type:Provider Instructions for Treatment How to access health informa tion online Indication:BMI 26.0-26.9,adult Start:06-Apr-2018 Instruction Type:Patient Education How to access health informa tion online - Detail Indication:BMI 26.0-26.9,adult Start:06-Apr-2018 Instruction Type:Patient Education Patient Instructions Indication:BMI 26.0-26.9,adult Start:06-Apr-2018 Instruction Type:Provider Instructions for Treatment How to access health informa tion online Indication:Nonsmoker Start:24-Mar-2018 Instruction Type:Patient Education How to access health informa tion online - Detail Indication:Nonsmoker Start:24-Mar-2018 Instruction Type:Patient Education Patient Instructions Indication:Discolored nails Start:24-Mar-2018 Instruction Type:Provider Instructions for Treatment How to access health informa tion online Indication:Nonsmoker Start:14-Sep-2017 Instruction Type:Patient Education How to access health informa tion online - Detail Indication:Nonsmoker Start:14-Sep-2017 Instruction Type:Patient Education Patient Instructions Indication:Itch of skin Start:14-Sep-2017 Instruction Type:Provider Instructions for Treatment How to access health informa tion online Indication:Nonsmoker Start:12-Aug-2017 Instruction Type:Patient Education How to access health informa tion online - Detail Indication:Nonsmoker Start:12-Aug-2017 Instruction Type:Patient Education Patient Instructions Indication:Rash Start:12-Aug-2017 Instruction Type:Provider Instructions for Treatment How to access health informa tion online Indication:Nonsmoker Start:07-May-2017 Instruction Type:Patient Education How to access health informa tion online - Detail Indication:Nonsmoker Start:07-May-2017 Instruction Type:Patient Education Patient Instructions Indication:Nonsmoker Start:07-May-2017 Instruction Type:Provider Instructions for Treatment How to access health informa tion online Indication:BMI 26.0-26.9,adult Start:21-Sep-2016 Instruction Type:Patient Education How to access health informa tion online - Detail Indication:BMI 26.0-26.9,adult Start:21-Sep-2016 Instruction Type:Patient Education Patient Instructions Indication:BMI 26.0-26.9,adult Start:21-Sep-2016 Instruction Type:Provider Instructions for Treatment Patient Instructions Indication:Bee sting reaction Start:18-Sep-2016 Instruction Type:Provider Instructions for Treatment How to access health informa tion online Indication:Bee sting reaction Start:18-Sep-2016 Instruction Type:Patient Education How to access health informa tion online - Detail Indication:Bee sting reaction Start:18-Sep-2016 Instruction Type:Patient Education Patient Instructions Indication:Bee sting reaction Start:18-Sep-2016 Instruction Type:Provider Instructions for Treatment How to access health informa tion online Indication:Mosquito bite, initial encounter Start:14-Nov-2015 Instruction Type:Patient Education How to access health informa tion online - Detail Indication:Mosquito bite, initial encounter Start:14-Nov-2015 Instruction Type:Patient Education Patient Instructions Indication:Mosquito bite, initial encounter Start:14-Nov-2015 Instruction Type:Provider Instructions for Treatment How to access health informa tion online Indication:Lower back pain Start:23-Jul-2015 Instruction Type:Patient Education How to access health informa tion online - Detail Indication:Lower back pain Start:23-Jul-2015 Instruction Type:Patient Education Patient Instructions Indication:Lower back pain Start:23-Jul-2015 Instruction Type:Provider Instructions for Treatment How to access health informa tion online Indication:Poison manan Start:14-Sep-2013 Instruction Type:Patient Education How to access health informa tion online - Detail Indication:Poison manan Start:14-Sep-2013 Instruction Type:Patient Education Patient Instructions Indication:Poison manan Start:14-Sep-2013 Instruction Type:Provider Instructions for Treatment Patient Instructions Indication:Numerous moles Start:11-Jul-2013 Instruction Type:Provider Instructions for Treatment Patient Instructions Indication:Inflamed skin tag Start:19-Jul-2012 Instruction Type:Provider Instructions for Treatment [facility]; [facility] Work Phone: progress note No data available for this section [facility] Instructions Name Dates Details Nonsmoker : How to access he alth information online Indication:Nonsmoker Nonsmoker : How to access he alth information online - Detail Indication:Nonsmoker Discolored nails : Patient I nstructions Indication:Discolored nails Itch of skin : Patient Instr uctions Indication:Itch of skin Rash : Patient Instructions Indication:Rash Nonsmoker : Patient Instruct ions Indication:Nonsmoker BMI 26.0-26.9,adult : How to access health information online Indication:BMI 26.0-26.9,adult BMI 26.0-26.9,adult : How to access health information online - Detail Indication:BMI 26.0-26.9,adult BMI 26.0-26.9,adult : Patien t Instructions Indication:BMI 26.0-26.9,adult Bee sting reaction : Patient Instructions Indication:Bee sting reaction Bee sting reaction : How to access health information online Indication:Bee sting reaction Bee sting reaction : How to access health information online - Detail Indication:Bee sting reaction Mosquito bite, initial encou nter : How to access health information online Indication:Mosquito bite, initial encounter Mosquito bite, initial encou nter : How to access health information online - Detail Indication:Mosquito bite, initial encounter Mosquito bite, initial encou nter : Patient Instructions Indication:Mosquito bite, initial encounter Lower back pain : How to acc ess health information online Indication:Lower back pain Lower back pain : How to acc ess health information online - Detail Indication:Lower back pain Lower back pain : Patient In structions Indication:Lower back pain Poison manan : How to access h ealth information online Indication:Poison manan Poison manan : How to access h ealth information online - Detail Indication:Poison manan Poison manan : Patient Instruc tions Indication:Poison manan Numerous moles : Patient Ins tructions Indication:Numerous moles Inflamed skin tag : Patient Instructions Indication:Inflamed skin tag Name Dates Details BMI 26.0-26.9,adult : How to access health information online Indication:BMI 26.0-26.9,adult BMI 26.0-26.9,adult : How to access health information online - Detail Indication:BMI 26.0-26.9,adult BMI 26.0-26.9,adult : Patien t Instructions Indication:BMI 26.0-26.9,adult Nonsmoker : How to access he alth information online Indication:Nonsmoker Nonsmoker : How to access he alth information online - Detail Indication:Nonsmoker Discolored nails : Patient I nstructions Indication:Discolored nails Itch of skin : Patient Instr uctions Indication:Itch of skin Rash : Patient Instructions Indication:Rash Nonsmoker : Patient Instruct ions Indication:Nonsmoker Bee sting reaction : Patient Instructions Indication:Bee sting reaction Bee sting reaction : How to access health information online Indication:Bee sting reaction Bee sting reaction : How to access health information online - Detail Indication:Bee sting reaction Mosquito bite, initial encou nter : How to access health information online Indication:Mosquito bite, initial encounter Mosquito bite, initial encou nter : How to access health information online - Detail Indication:Mosquito bite, initial encounter Mosquito bite, initial encou nter : Patient Instructions Indication:Mosquito bite, initial encounter Lower back pain : How to acc ess health information online Indication:Lower back pain Lower back pain : How to acc ess health information online - Detail Indication:Lower back pain Lower back pain : Patient In structions Indication:Lower back pain Poison manan : How to access h ealth information online Indication:Poison manan Poison manan : How to access h ealth information online - Detail Indication:Poison manan Poison manan : Patient Instruc tions Indication:Poison manan Numerous moles : Patient Ins tructions Indication:Numerous moles Inflamed skin tag : Patient Instructions Indication:Inflamed skin tag Name Dates Details BMI 26.0-26.9,adult : How to access health information online Indication:BMI 26.0-26.9,adult BMI 26.0-26.9,adult : How to access health information online - Detail Indication:BMI 26.0-26.9,adult BMI 26.0-26.9,adult : Patien t Instructions Indication:BMI 26.0-26.9,adult Nonsmoker : How to access he alth information online Indication:Nonsmoker Nonsmoker : How to access he alth information online - Detail Indication:Nonsmoker Discolored nails : Patient I nstructions Indication:Discolored nails Itch of skin : Patient Instr uctions Indication:Itch of skin Rash : Patient Instructions Indication:Rash Nonsmoker : Patient Instruct ions Indication:Nonsmoker Bee sting reaction : Patient Instructions Indication:Bee sting reaction Bee sting reaction : How to access health information online Indication:Bee sting reaction Bee sting reaction : How to access health information online - Detail Indication:Bee sting reaction Mosquito bite, initial encou nter : How to access health information online Indication:Mosquito bite, initial encounter Mosquito bite, initial encou nter : How to access health information online - Detail Indication:Mosquito bite, initial encounter Mosquito bite, initial encou nter : Patient Instructions Indication:Mosquito bite, initial encounter Lower back pain : How to acc ess health information online Indication:Lower back pain Lower back pain : How to acc ess health information online - Detail Indication:Lower back pain Lower back pain : Patient In structions Indication:Lower back pain Poison manan : How to access h ealth information online Indication:Poison manan Poison manan : How to access h ealth information online - Detail Indication:Poison manan Poison manan : Patient Instruc tions Indication:Poison manan Numerous moles : Patient Ins tructions Indication:Numerous moles Inflamed skin tag : Patient Instructions Indication:Inflamed skin tag Name Dates Details How to access health informa tion online Indication:BMI 27.0-27.9,adult Start:07-Sep-2018 Instruction Type:Patient Education How to access health informa tion online - Detail Indication:BMI 27.0-27.9,adult Start:07-Sep-2018 Instruction Type:Patient Education Patient Instructions Indication:BMI 27.0-27.9,adult Start:07-Sep-2018 Instruction Type:Provider Instructions for Treatment How to access health informa tion online Indication:BMI 26.0-26.9,adult Start:06-Apr-2018 Instruction Type:Patient Education How to access health informa tion online - Detail Indication:BMI 26.0-26.9,adult Start:06-Apr-2018 Instruction Type:Patient Education Patient Instructions Indication:BMI 26.0-26.9,adult Start:06-Apr-2018 Instruction Type:Provider Instructions for Treatment How to access health informa tion online Indication:Nonsmoker Start:24-Mar-2018 Instruction Type:Patient Education How to access health informa tion online - Detail Indication:Nonsmoker Start:24-Mar-2018 Instruction Type:Patient Education Patient Instructions Indication:Discolored nails Start:24-Mar-2018 Instruction Type:Provider Instructions for Treatment How to access health informa tion online Indication:Nonsmoker Start:14-Sep-2017 Instruction Type:Patient Education How to access health informa tion online - Detail Indication:Nonsmoker Start:14-Sep-2017 Instruction Type:Patient Education Patient Instructions Indication:Itch of skin Start:14-Sep-2017 Instruction Type:Provider Instructions for Treatment How to access health informa tion online Indication:Nonsmoker Start:12-Aug-2017 Instruction Type:Patient Education How to access health informa tion online - Detail Indication:Nonsmoker Start:12-Aug-2017 Instruction Type:Patient Education Patient Instructions Indication:Rash Start:12-Aug-2017 Instruction Type:Provider Instructions for Treatment How to access health informa tion online Indication:Nonsmoker Start:07-May-2017 Instruction Type:Patient Education How to access health informa tion online - Detail Indication:Nonsmoker Start:07-May-2017 Instruction Type:Patient Education Patient Instructions Indication:Nonsmoker Start:07-May-2017 Instruction Type:Provider Instructions for Treatment How to access health informa tion online Indication:BMI 26.0-26.9,adult Start:21-Sep-2016 Instruction Type:Patient Education How to access health informa tion online - Detail Indication:BMI 26.0-26.9,adult Start:21-Sep-2016 Instruction Type:Patient Education Patient Instructions Indication:BMI 26.0-26.9,adult Start:21-Sep-2016 Instruction Type:Provider Instructions for Treatment Patient Instructions Indication:Bee sting reaction Start:18-Sep-2016 Instruction Type:Provider Instructions for Treatment How to access health informa tion online Indication:Bee sting reaction Start:18-Sep-2016 Instruction Type:Patient Education How to access health informa tion online - Detail Indication:Bee sting reaction Start:18-Sep-2016 Instruction Type:Patient Education How to access health informa tion online Indication:Mosquito bite, initial encounter Start:14-Nov-2015 Instruction Type:Patient Education How to access health informa tion online - Detail Indication:Mosquito bite, initial encounter Start:14-Nov-2015 Instruction Type:Patient Education Patient Instructions Indication:Mosquito bite, initial encounter Start:14-Nov-2015 Instruction Type:Provider Instructions for Treatment How to access health informa tion online Indication:Lower back pain Start:23-Jul-2015 Instruction Type:Patient Education How to access health informa tion online - Detail Indication:Lower back pain Start:23-Jul-2015 Instruction Type:Patient Education Patient Instructions Indication:Lower back pain Start:23-Jul-2015 Instruction Type:Provider Instructions for Treatment How to access health informa tion online Indication:Poison manan Start:14-Sep-2013 Instruction Type:Patient Education How to access health informa tion online - Detail Indication:Poison manan Start:14-Sep-2013 Instruction Type:Patient Education Patient Instructions Indication:Poison manan Start:14-Sep-2013 Instruction Type:Provider Instructions for Treatment Patient Instructions Indication:Numerous moles Start:11-Jul-2013 Instruction Type:Provider Instructions for Treatment Patient Instructions Indication:Inflamed skin tag Start:19-Jul-2012 Instruction Type:Provider Instructions for Treatment Name Dates Details How to access health informa tion online Indication:Nonsmoker Start:20-Nov-2019 Instruction Type:Patient Education How to access health informa tion online - Detail Indication:Nonsmoker Start:20-Nov-2019 Instruction Type:Patient Education Patient Instructions Indication:Nonsmoker Start:20-Nov-2019 Instruction Type:Provider Instructions for Treatment How to access health informa tion online Indication:BMI 28.0-28.9,adult Start:14-Mar-2019 Instruction Type:Patient Education How to access health informa tion online - Detail Indication:BMI 28.0-28.9,adult Start:14-Mar-2019 Instruction Type:Patient Education Patient Instructions Indication:BMI 28.0-28.9,adult Start:14-Mar-2019 Instruction Type:Provider Instructions for Treatment How to access health informa tion online Indication:BMI 27.0-27.9,adult Start:07-Sep-2018 Instruction Type:Patient Education How to access health informa tion online - Detail Indication:BMI 27.0-27.9,adult Start:07-Sep-2018 Instruction Type:Patient Education Patient Instructions Indication:BMI 27.0-27.9,adult Start:07-Sep-2018 Instruction Type:Provider Instructions for Treatment How to access health informa tion online Indication:BMI 26.0-26.9,adult Start:06-Apr-2018 Instruction Type:Patient Education How to access health informa tion online - Detail Indication:BMI 26.0-26.9,adult Start:06-Apr-2018 Instruction Type:Patient Education Patient Instructions Indication:BMI 26.0-26.9,adult Start:06-Apr-2018 Instruction Type:Provider Instructions for Treatment How to access health informa tion online Indication:Nonsmoker Start:24-Mar-2018 Instruction Type:Patient Education How to access health informa tion online - Detail Indication:Nonsmoker Start:24-Mar-2018 Instruction Type:Patient Education Patient Instructions Indication:Discolored nails Start:24-Mar-2018 Instruction Type:Provider Instructions for Treatment How to access health informa tion online Indication:Nonsmoker Start:14-Sep-2017 Instruction Type:Patient Education How to access health informa tion online - Detail Indication:Nonsmoker Start:14-Sep-2017 Instruction Type:Patient Education Patient Instructions Indication:Itch of skin Start:14-Sep-2017 Instruction Type:Provider Instructions for Treatment How to access health informa tion online Indication:Nonsmoker Start:12-Aug-2017 Instruction Type:Patient Education How to access health informa tion online - Detail Indication:Nonsmoker Start:12-Aug-2017 Instruction Type:Patient Education Patient Instructions Indication:Rash Start:12-Aug-2017 Instruction Type:Provider Instructions for Treatment How to access health informa tion online Indication:Nonsmoker Start:07-May-2017 Instruction Type:Patient Education How to access health informa tion online - Detail Indication:Nonsmoker Start:07-May-2017 Instruction Type:Patient Education Patient Instructions Indication:Nonsmoker Start:07-May-2017 Instruction Type:Provider Instructions for Treatment How to access health informa tion online Indication:BMI 26.0-26.9,adult Start:21-Sep-2016 Instruction Type:Patient Education How to access health informa tion online - Detail Indication:BMI 26.0-26.9,adult Start:21-Sep-2016 Instruction Type:Patient Education Patient Instructions Indication:BMI 26.0-26.9,adult Start:21-Sep-2016 Instruction Type:Provider Instructions for Treatment Patient Instructions Indication:Bee sting reaction Start:18-Sep-2016 Instruction Type:Provider Instructions for Treatment How to access health informa tion online Indication:Bee sting reaction Start:18-Sep-2016 Instruction Type:Patient Education How to access health informa tion online - Detail Indication:Bee sting reaction Start:18-Sep-2016 Instruction Type:Patient Education How to access health informa tion online Indication:Mosquito bite, initial encounter Start:14-Nov-2015 Instruction Type:Patient Education How to access health informa tion online - Detail Indication:Mosquito bite, initial encounter Start:14-Nov-2015 Instruction Type:Patient Education Patient Instructions Indication:Mosquito bite, initial encounter Start:14-Nov-2015 Instruction Type:Provider Instructions for Treatment How to access health informa tion online Indication:Lower back pain Start:23-Jul-2015 Instruction Type:Patient Education How to access health informa tion online - Detail Indication:Lower back pain Start:23-Jul-2015 Instruction Type:Patient Education Patient Instructions Indication:Lower back pain Start:23-Jul-2015 Instruction Type:Provider Instructions for Treatment How to access health informa tion online Indication:Poison manan Start:14-Sep-2013 Instruction Type:Patient Education How to access health informa tion online - Detail Indication:Poison manan Start:14-Sep-2013 Instruction Type:Patient Education Patient Instructions Indication:Poison manan Start:14-Sep-2013 Instruction Type:Provider Instructions for Treatment Patient Instructions Indication:Numerous moles Start:11-Jul-2013 Instruction Type:Provider Instructions for Treatment Patient Instructions Indication:Inflamed skin tag Start:19-Jul-2012 Instruction Type:Provider Instructions for Treatment Summary Purpose Family History No Family History Records FoundNo Family History Records Found Advance Directives No Advanced Directives Records FoundNo Advanced Directives Records Found Additional Source Comments INFORMATION SOURCE (unrecogn ized section and content) DATE CREATED AUTHOR AUTHOR'S SHILA ATION 09/01/2022 [facility] ([place]) Care Team (unrecognized sect ion and content) Care Team Personnel Name: CARISSA, SURJIT S PHYSICIAN SCRIBE-INGREDIENT SCALER HELPER Position: [facility] Nurse Med Service: Employed Provider Member Role: Primary Care Physician Address: Address: [address] Care Team Related Persons Name: KINGA CLIFTON Patient Care team informatio n (unrecognized section and content) Care Team Personnel Name: SURJIT FERRER PHYSICIAN SCRIBE-INGREDIENT SCALER HELPER Position: [facility] [employer] Consultant Member Role: Primary Care Physician Address: Address: [address] Care Team Related Persons Name: KINGA CLIFTON FOR RECORDS PERTAINING TO PATIENTS WHO ARE OR HAVE BEEN ENROLLED IN A CHEMICAL DEPENDENCY/SUBSTANCEABUSE PROGRAM, SOME INFORMATION MAY BE OMITTED. This clinical summary was aggregated from multiple sources. Caution should be exercised in using it in the provision of clinical care. This summary normalizes information from multiple sources, and as a consequence, information in this document may materially change the coding, format and clinical context of patient data. In addition, data may be omitted in some cases. CLINICAL DECISIONS SHOULD BE BASED ON THE PRIMARY CLINICAL RECORDS. [facility] [employer] provides no warranty or guarantee of the accuracy or completeness of information in this document.
== END | disposition home or self-care (01) ==
LOC: LABSPEC 10:06
PROVIDERS: PCP Nurse Practitioner Primary Care; Referring Provider Ophthalmology; Visit Provider Ophthalmology
DX: H02.9 Unspecified disorder of eyelid (principal)
CPT/HCPCS: 88305

== ENCOUNTER → 2023-08-13 | Outpatient (CLI) | payer MEDICARE, SELFPAY ==
--- NOTE | 2023-08-13 09:02 | BI_ITS ---
MAMMOGRAPHY - BILATERAL SCREENING REASON FOR EXAM: Female, 67 years old. Routine annual screening examination. PERTINENT HISTORY: Aunts with breast cancer. TECHNIQUE: Digital bilateral breast gloria (3D mammographic acquisition) in the CC and MLO projections. 2-D mediolateral oblique (MLO) and craniocaudad (CC) views of both breasts were obtained. CAD: Full Field Digital Mammography with Computer Added Detection was performed. COMPARISON: Comparison is made with prior study dated August 11, 2022 and June 12, 2021. FINDINGS: Breast Composition: There are scattered areas of fibroglandular density. There are no dominant masses or suspicious calcifications. Stable benign-appearing bilateral axillary lymph nodes. 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 No other significant abnormalities are identified. There has been no significant change since the prior study. BI/SCRN MAMM (CAD)W/GLORIA BILAT IMPRESSION: Stable bilateral screening mammogram. Yearly follow-up mammogram recommended. (A) ASSESSMENT CATEGORY: BIRADS Category 2: Benign. A letter regarding these results will be sent to the patient by the facility within 30 days. Approximately 10% of breast cancers are not detected by mammography. A normal mammogram should not delay biopsy of a clinically suspicious abnormality. [id number] Electronically Signed: Niko Du MD at 10:17 EDT ,
== END | disposition home or self-care (01) ==
LOC: OPBI 09:01
PROVIDERS: PCP Nurse Practitioner Primary Care; Visit Provider Nurse Practitioner Primary Care
DX: Z12.31 Encounter for screening mammogram for malignant neoplasm of breast (principal)
CPT/HCPCS: 77063; 77067

== ENCOUNTER → 2023-12-03 | Outpatient (CLI) | payer MEDICARE, SELFPAY ==
--- NOTE | 2023-12-03 10:29 | RAD_ITS ---
EXAM: XR LEFT SHOULDER COMPLETE, 2 OR MORE VIEWS CLINICAL INDICATION: XR SHOULDER LEFT COMPLETE (82664) : decreased ROM, left shoulder -- Left shoulder pain TECHNIQUE: Two or more views of the left shoulder. COMPARISON: No relevant prior studies available. FINDINGS: BONES/JOINTS: No acute abnormality. SOFT TISSUES: Normal. No soft tissue swelling or gas. No radiopaque foreign body. RAD/Shoulder min 2 Views IMPRESSION: Intact left shoulder. Electronically Signed: Maximo Monahan MD at 12:43 EDT ,
--- NOTE | 2023-12-03 10:30 | RAD_ITS ---
EXAM: XR CERVICAL SPINE, 2 OR 3 VIEWS CLINICAL INDICATION: XR CERVICAL SPINE 3V (50928) : chronic neck pain, left sided pare -- Neck pain TECHNIQUE: Frontal and lateral views of the cervical spine. COMPARISON: No relevant prior studies available. FINDINGS: VERTEBRAE: No fracture or subluxation. DISC SPACES: Disc space narrowing and vertebral body hypertrophy noted at C4-5, C5-6, C6-7 and C7-T1. Mild multilevel facet arthropathy. SOFT TISSUES: Normal. No prevertebral soft tissue widening. LUNG APICES: Clear. RAD/Cerv Spine 2 or 3 Views IMPRESSION: Moderate diffuse spondylosis. Electronically Signed: Maximo Monahan MD at 12:42 EDT ,
== END | disposition home or self-care (01) ==
LOC: MTRAD 10:29
PROVIDERS: PCP Nurse Practitioner Family; Referring Provider Nurse Practitioner Family; Visit Provider Nurse Practitioner Family
DX: M54.2 Cervicalgia (principal); M25.512 Pain in left shoulder
CPT/HCPCS: 72040; 73030

== ENCOUNTER 2024-02-11 10:09 | Outpatient (CLI) | payer MEDICARE, SELFPAY | END 2024-02-11 23:59 | disposition home or self-care (01) | LOC: MEDOUTP 10:10 | PROVIDERS: PCP Nurse Practitioner Family; Referring Provider Nurse Practitioner Family; Visit Provider Nurse Practitioner Family | DX: R35.0 Frequency of micturition (principal) | CPT/HCPCS: 87086; 87088; 87186 ==

== ENCOUNTER → 2024-08-29 | Outpatient (CLI) | payer MEDICARE, SELFPAY ==
--- NOTE | 2024-08-29 15:49 | BI_ITS ---
EXAM: SCRN MAMM (CAD)W/GLORIA BILAT DATE: 08/29/2024 CLINICAL HISTORY: F, Age 68 y/o , SCREENING TECHNIQUE: SCRN MAMM (CAD)W/GLORIA BILAT COMPARISON: Prior exam(s) were compared FINDINGS: TISSUE DENSITY: The breast tissue is heterogeneously dense, which may obscure small masses. Bilateral Breast Mammographic Findings: No suspicious masses, calcifications or other abnormalities are identified. BI/SCRN MAMM (CAD)W/GLORIA BILAT IMPRESSION: No mammographic evidence of malignancy in either breast OVERALL FINAL ASSESSMENT BI-RADS 1: NEGATIVE. RECOMMEND ANNUAL MAMMOGRAPHIC SCREENING. RECOMMENDATION: Routine annual follow-up in 1 Year A letter with findings and recommendations will be mailed to the patient. Reading Location: [id number]
--- NOTE | 2024-08-29 15:55 | BD_ITS ---
PROCEDURE: DEXA BONE DENSITY STUDY 08/29/2024 REASON FOR EXAM: F, age 68 y/o . TECHNIQUE: DEXA BONE DENSITY STUDY COMPARISON: DEXA scan on 08/11/2022 FINDINGS: BMD and T-SCORES Lumbar spine: 1.081 g/cm2, T-score 0.9 Levels: L1-L2 Change from prior: Statistically significant BMD increase of 3.4 %. Left femoral neck: 0.570 g/cm2, T-score -2.5 Femoral neck comparison data not recommended for monitoring change. Prior T-score -2.4 Left total hip: 0.616 g/cm2, T-score -2.7 Change from prior: No significant change in BMD.. Right femoral neck: 0.574 g/cm2, T-score -2.5 Femoral neck comparison data not recommended for monitoring change. Prior T-score -2.6 Right total hip: 0.667 g/cm2, T-score -2.3 Change from prior: Statistically significant BMD increase of 4.7%. The World Health Organization has defined the following categories based on bone density: Normal bone density: T-score equal to or greater than -1.0 Osteopenia: T-score between -1.0 and -2.5 Osteoporosis: T-score equal to or less than -2.5 BD/Dexa Bone Density Study IMPRESSION: OSTEOPOROSIS. Reading Location: [id number]
== END | disposition home or self-care (01) ==
LOC: OPBD 15:48
PROVIDERS: PCP Nurse Practitioner Primary Care; Referring Provider Nurse Practitioner Primary Care; Visit Provider Nurse Practitioner Primary Care
DX: Z12.31 Encounter for screening mammogram for malignant neoplasm of breast (principal); Z13.820 Encounter for screening for osteoporosis; M81.0 Age-related osteoporosis without current pathological fracture
CPT/HCPCS: 77063; 77067; 77080